=== PATIENT | female | born 1990 | race Caucasian/White ===

== ENCOUNTER 2017-07-25 15:38 | Emergency (ER) | payer BC, MEDICAID ==
[2017-07-25] MEDS ORDERED: DIPHENHYDRAMINE HCL IV 50 MG/ML VIAL IVP ONE (16:09)
[2017-07-25] MEDS ORDERED: LORAZEPAM 2 MG/ML VIAL IV ONE (16:09)
[2017-07-25] MEDS ORDERED: 0.9 % SODIUM CHLORIDE 1,000 ML BAG IV ONE (16:09)
[2017-07-25] MEDS ORDERED: METOCLOPRAMIDE HCL 10 MG/2 ML VIAL IVP ONE (16:09)
[2017-07-25] MEDS ORDERED: KETOROLAC 30 MG/ML VIAL IVP ONE (16:09)
--- NOTE | 2017-07-25 16:09 | Emergency Department Record ---
History of Present Illness - General Chief Complaint: Headache Migraine Stated Complaint: DELGADO Time Seen by Provider: 07/25/17 15:40 Source: Patient Mode of Arrival: Ambulatory Limitations: No limitations - History of Present Illness Initial Comments: 27 yo female presents with a headache. She has been having headaches since May. She has recently been under the care of a neurologist. She had an MRI of her brain today in [place]. She reports that the headaches started and would come and go. She states she has nausea, light and noise sensitivity, fingers tingle, and she gets tingling around her mouth. Over the months the headaches became more frequent and now are present daily. She saw the neurologist and had labs and scheduled for MRI that was today. No confusion. She does have anxiety about having a brain tumor or aneurysm. No trauma. No other recent changes in her health. The headaches are typical on the right side. MD Complaint: Headache Onset/Timin -: Hour(s) Onset Description: Gradual (gradually worsening over 3 months) Location: Right Severity: Severe Severity scale (1-10): 10 Quality: Sharp Consistency: Constant Improves With: Nothing Worsens With: Light, Noise Associated Symptoms: Photophobia, Sensitivity to sound, Tingling/numbness, Vomiting Treatment Prior to Arrival Comment:: excedrin, tramadol, motrin, tylenol , dramamine - Related Data Home Medications Medication Instructions Recorded Confirmed Last Taken Clonazepam [Klonopin] 1 mg PO Q12H 07/25/17 07/25/17 Unknown Ethinyl Estradiol/Drospirenone 1 tab PO DAILY 07/25/17 07/25/17 Unknown [Loryna 3 mg-0.02 mg Tablet] Sertraline HCl [Zoloft] 100 mg PO DAILY 07/25/17 07/25/17 Unknown Tramadol HCl [Ultram] 50 mg PO Q8H PRN 07/25/17 07/25/17 07/25/17 Previous Rx's Medication Instructions Recorded Methylprednisolone [Medrol Dose 4 mg PO DAILY #1 tab.ds.pk 07/25/17 Pack] Allergies Allergy/AdvReac Type Severity Reaction Status Date / Time Sulfa (Sulfonamide Allergy HIVES Verified 03/16/14 23:04 Antibiotics) Travel Screening - Travel/Exposure Within Last 30 Days Have you traveled within the last 30 days?: No - Travel Symptoms Symptom Screening: None Review of Systems Constitutional: Denies: Chills, Fever, Malaise, Night sweats, Weakness Eyes: Reports: Photophobia. Denies: Eye discharge, Eye pain ENT: Denies: Congestion, Dental pain, Ear pain, Throat pain Respiratory: Denies: Cough, Dyspnea, Hemoptysis, Stridor, Wheezes Cardiovascular: Denies: Chest pain, Palpitations, Syncope Endocrine: Denies: Fatigue Gastrointestinal: Reports: Nausea. Denies: Abdominal pain, Diarrhea, Vomiting Genitourinary: Denies: Dyspareunia, Dysuria, Urgency Musculoskeletal: Denies: Arthralgia, Back pain, Joint swelling, Myalgia, Neck pain Skin: Denies: Bruising, Change in color, Rash Neurological: Reports: Headache, Tingling (fingers tingle at times). Denies: Abnormal gait, Confusion, Numbness, Paresthesias, Tremors, Vertigo, Weakness Psychiatric: Reports: Anxiety Hematological/Lymphatic: Denies: Anemia, Blood Clots, Easy bruising, Swollen glands Past Medical History - SOCIAL HISTORY Smoking Status: Former smoker - RESPIRATORY Hx Respiratory Disorders: No - CARDIOVASCULAR Hx Cardio Disorders: No - NEURO Hx Neuro Disorders: No - GI Hx GI Disorders: Yes Hx Irritable Bowel: Yes - Hx Genitourinary Disorders: Yes Hx UTI: Yes - ENDOCRINE Hx Endocrine Disorders: No - MUSCULOSKELETAL Hx Musculoskeletal Disorders: No - PSYCH Hx Psych Problems: Yes Hx Anxiety: Yes - HEMATOLOGY/ONCOLOGY Hx Hematology/Oncology Disorders: No Family Medical History Any Significant Family History?: Yes Hx Heart Disease: Grandparents Physical Exam - General General Appearance: Alert, Oriented x3, Cooperative, No acute distress, Anxious (expressed concern it is a tumor) Limitations: No limitations - Head Head exam: Normal inspection - Eye Eye exam: Normal appearance, PERRL, EOMI. negative: Conjunctival injection, Periorbital swelling - ENT ENT exam: Normal exam, Mucous membranes moist Ear exam: Normal external inspection Nasal Exam: Normal inspection Mouth exam: Normal external inspection - Neck Neck exam: Normal inspection, Full ROM. negative: Lymphadenopathy, Meningismus - Respiratory Respiratory exam: Normal lung sounds bilaterally. negative: Respiratory distress - Cardiovascular Cardiovascular Exam: Regular rate, Normal rhythm, Normal heart sounds Peripheral Pulses: 2+: Radial (R), Radial (L) - Rectal Rectal exam: Deferred - exam: Deferred - Extremities Extremities exam: Normal inspection, Full ROM. negative: Pedal edema, Tenderness - Back Back exam: Reports: Normal inspection. Denies: CVA tenderness (R), CVA tenderness (L) - Neurological Neurological exam: Alert, Altered, CN II-XII intact, Normal gait, Oriented X3, Reflexes normal, Other (No PND, normal FTN,clear speech, symmetric face, clear thoughts). negative: Motor sensory deficit - Psychiatric Psychiatric exam: Anxious. negative: Agitated - Skin Skin exam: Dry, Intact, Normal color, Warm. negative: Cyanosis, Diaphoretic, Erythema, Mottled Course Vital Signs 07/25/17 15:46 Temperature 98.9 F Pulse Rate [ 111 H Pulse Ox Probe] Respiratory 20 Rate Blood Pressure 131/101 [Left Arm] Pulse Ox 92 L - Reevaluation(s) Reevaluation #1: MRI today: No acute abnormality, minimal chronic small ischemic change of frontal and occipital WM, essentially within normal limits, No enhancing Brain lesions, mild chronic sinusitis. The patient was informed of the results. 07/25/17 16:19 Reevaluation #2: The patient is much improved at this time Labs from 07/15/17 ESR 45, and CRP 2.3 Given the elevation I will have her call her neurologist on Friday She will be placed on a Medrol dose pack given labs She was given instructions for close follow up as well as reasons to seek medical care immediately. 07/25/17 18:17 Disposition Disposition: Discharge Clinical Impression: Headache Qualifiers: Headache type: unspecified Headache chronicity pattern: acute headache Intractability: not intractable Qualified Code(s): R51 - Headache Disposition: Home, Self-Care Condition: (1) Good Instructions: Acute Headache (ED) Additional Instructions: Call your neurologist to follow up the MRI and the ED visit Return or seek medical care if return of symptoms or worse Rest and stay well hydrated Prescriptions: Methylprednisolone [Medrol Dose Pack] 4 mg PO DAILY #1 tab.ds.pk Forms: Patient Portal Access Time of Disposition: 18:18 Quality - Quality Measures Quality Measures: N/A - Blood Pressure Screening Does Patient Have Any of the Following: No Blood Pressure Classification: Pre-Hypertensive BP Reading Systolic Measurement: 125 Diastolic Measurement: 70 Screening for High Blood Pressure: < Pre-Hypertensive BP, F/U Documented > [ G8730] Pre-Hypertensive Follow-up Interventions: Referral to alternative/primary care provider.
[2017-07-25] MEDS ORDERED: PROMETHAZINE HCL 25 MG/ML VIAL IVP ONE (17:07)
[2017-07-25] MEDS ORDERED: DEXAMETHASONE SOD PHOSPHATE 10MG/ML VIAL IVP ONE (17:07)
[2017-07-25] MEDS ORDERED: MORPHINE SULFATE 5 MG/ML PFS IVP ONE ×2 (17:07→17:54)
== END 2017-07-25 18:42 | disposition home or self-care (01) ==
LOC: ER 15:38
DX: R51 Headache (principal); R11.2 Nausea with vomiting, unspecified; R20.2 Paresthesia of skin
CPT/HCPCS: 99284 ×2; 96376; 96374; 96375; 96361; J1885; J2060; J2270; J1100; J1200; J2550; J2765; J7030

== ENCOUNTER 2018-04-14 21:53 | Emergency (ER) | payer MEDICAID ==
[2018-04-14] MEDS ORDERED: DIPHENHYDRAMINE HCL 50 MG/ML VIAL IVP ONE ×2 (22:12→22:15)
[2018-04-14] MEDS ORDERED: PROMETHAZINE HCL 25 MG in 0.9 % SODIUM CHLORIDE 100ML 100 ML IVPB ONE (22:12)
[2018-04-14] MEDS ORDERED: KETOROLAC 30 MG/ML VIAL IVP ONE (22:12)
[2018-04-14] MEDS ORDERED: 0.9 % SODIUM CHLORIDE 1000ML 1,000 ML IV SCH (22:15)
--- NOTE | 2018-04-14 22:17 | Emergency Department Record ---
History of Present Illness - General Chief Complaint: Headache Migraine Stated Complaint: MIGRAINE Time Seen by Provider: 04/14/18 22:12 Source: Patient Mode of Arrival: Ambulatory Limitations: No limitations - History of Present Illness Initial Comments: 28 yo female presents to ED for evaluation of headache symptoms that began earlier today. Patient reports "sharp shooting" pain behind the right eye. Patient does report a history of migraine headaches, however today symptoms are more intense. Patient denies neck stiffness symptoms, denies the use of anticoagulation medications. Patient reports taking Topamax and Ultram without improvement in her symptoms. MD Complaint: Headache Onset/Timin -: Days(s) Onset Description: Gradual Location: Diffuse Severity: Severe Quality: Throbbing Consistency: Constant Improves With: Nothing Worsens With: None Associated Symptoms: Nausea Treatments Prior to Arrival: Migraine medication - Related Data Home Medications Medication Instructions Recorded Confirmed Last Taken Topiramate 25Mg Tablet [Topiramate] 50 mg PO DAILY 04/14/18 04/14/18 Unknown Allergies Allergy/AdvReac Type Severity Reaction Status Date / Time Sulfa (Sulfonamide Allergy HIVES Verified 03/16/14 23:04 Antibiotics) Review of Systems Constitutional: Denies: Chills, Fever, Malaise, Night sweats Eyes: Denies: Eye discharge, Eye pain ENT: Denies: Congestion, Ear pain, Epistaxis Respiratory: Denies: Cough, Dyspnea Cardiovascular: Denies: Chest pain, Dyspnea on exertion Endocrine: Denies: Fatigue, Heat or cold intolerance Gastrointestinal: Denies: Abdominal pain, Nausea, Vomiting Genitourinary: Denies: Incontinence, Retention Musculoskeletal: Denies: Arthralgia, Back pain, Gout, Joint swelling Skin: Denies: Bruising, Change in color Neurological: Reports: Headache. Denies: Abnormal gait, Confusion, Seizure Psychiatric: Denies: Anxiety Hematological/Lymphatic: Denies: Anemia, Blood Clots Past Medical History - SOCIAL HISTORY Smoking Status: Former smoker - RESPIRATORY Hx Respiratory Disorders: No - CARDIOVASCULAR Hx Cardio Disorders: No - NEURO Hx Neuro Disorders: No - GI Hx GI Disorders: Yes Hx Irritable Bowel: Yes - Hx Genitourinary Disorders: Yes Hx UTI: Yes - ENDOCRINE Hx Endocrine Disorders: No - MUSCULOSKELETAL Hx Musculoskeletal Disorders: No - PSYCH Hx Psych Problems: Yes Hx Anxiety: Yes - HEMATOLOGY/ONCOLOGY Hx Hematology/Oncology Disorders: No Family Medical History Hx Heart Disease: Grandparents Physical Exam - General General Appearance: Alert, Oriented x3, Cooperative, Moderate distress Limitations: No limitations - Head Head exam: Atraumatic, Normocephalic, Normal inspection Head exam detail: negative: Abrasion, Contusion, Tol[place]'s sign, General tenderness, Hematoma, Laceration - Eye Eye exam: Normal appearance. negative: Conjunctival injection, Periorbital swelling, Periorbital tenderness, Scleral icterus - ENT Ear exam: negative: Auricular hematoma, Auricular trauma Nasal Exam: negative: Active bleeding, Discharge, Dried blood, Foreign body Mouth exam: negative: Drooling, Laceration, Muffled voice, Tongue elevation - Neck Neck exam: Normal inspection. negative: Meningismus, Tenderness - Respiratory Respiratory exam: Normal lung sounds bilaterally. negative: Rales, Respiratory distress, Rhonchi, Stridor - Cardiovascular Cardiovascular Exam: Regular rate, Normal rhythm, Normal heart sounds - GI/Abdominal GI/Abdominal exam: Soft. negative: Rebound, Rigid, Tenderness - Rectal Rectal exam: Deferred - exam: Deferred - Extremities Extremities exam: Normal inspection. negative: Calf tenderness, Pedal edema, Tenderness - Back Back exam: Denies: CVA tenderness (R), CVA tenderness (L) - Neurological Neurological exam: Alert, Normal gait, Oriented X3 - Psychiatric Psychiatric exam: Normal affect, Normal mood - Skin Skin exam: Normal color. negative: Abrasion Type of lesion: negative: abrasion Course - Reevaluation(s) Reevaluation #1: 04/14/18 23:44 Patient reassessed, reports that her pain symptoms are not significantly improved. Patient's recheck temperature is 98.5, no meningeal signs on re-examination as well. Will trial Valium 5 mg IV if morphine fails to improve symptoms in 10 minutes time. I did discuss indications for LP, patient continues to decline at this time. Reevaluation #2: 04/15/18 00:47 Patient was reassessed, reports mild improvement in her symptoms. I discussed initiating further work-up for the source of the patient's headache symptoms including CT imaging, basic laboratory studies, and LP. I discussed the reason to perform the evaluation to exclude SAH or possible infection (meningitis) despite the lack of meningeal signs on examination. Discussed the risks (delay in diagnosis, permanent impairment, or as well as bleeding, infection, post-LP headache) and benefits (diagnosis and treatment of SAH or meningitis) of further evaluation, patient declined further evaluation at this time and reports that she will call her neurologist in the morning. Patient is alert, oriented, and answers all questions appropriately on my examination. Patient appears to have the capacity to make rational decisions based on my examination. Patient's mother (an ED nurse) was present for all discussions as well and agrees with the patient's decision to go home and rest at this time and defer further evaluation in the ED at this time. Disposition Disposition: Discharge Clinical Impression: Acute headache Qualifiers: Headache type: unspecified Intractability: not intractable Qualified Code(s): R51 - Headache Disposition: Home, Self-Care Condition: (2) Stable Instructions: Acute Headache (ED) Additional Instructions: Return to ED if your symptoms worsen or if you have any concerns. Follow-up with your family doctor in 1-3 days as directed. Forms: Patient Portal Access Time of Disposition: 00:46 Quality - Quality Measures Quality Measures: N/A - Blood Pressure Screening Does Patient Have Any of the Following: No Blood Pressure Classification: Hypertensive Reading Systolic Measurement: 137 Diastolic Measurement: 98 Screening for High Blood Pressure: < First Hypertensive BP, F/U Documented > [ G8950] First Hypertensive Follow-up Interventions: Referral to alternative/primary care provider.
[2018-04-14] MEDS ORDERED: MORPHINE SULFATE 4MG/ML PREFILLED SYRINGE IVP ONE (23:11)
[2018-04-14] MEDS ORDERED: DIAZEPAM 5MG/ML **10ML VIAL IVP ONE (23:59)
== END 2018-04-15 00:57 | disposition home or self-care (01) ==
LOC: ER 21:53
DX: R51 Headache (principal); R11.0 Nausea; Z87.891 Personal history of nicotine dependence
CPT/HCPCS: 96365; 96375; 99284; J1200; J1885; J2274; J2550; J3360; J7030

== ENCOUNTER 2018-04-20 13:13 | Emergency (ER) | payer MEDICAID ==
[2018-04-20] MEDS ORDERED: DEXAMETHASONE SOD PHOSPHATE 10MG/ML VIAL IVP ONE (13:24)
[2018-04-20] MEDS ORDERED: KETOROLAC 30 MG/ML VIAL IVP ONE (13:24)
[2018-04-20] MEDS ORDERED: PROMETHAZINE HCL 12.5 MG in 0.9 % SODIUM CHLORIDE 100ML 100 ML IVPB ONE (13:24)
--- NOTE | 2018-04-20 13:25 | Emergency Department Record ---
History of Present Illness - General Chief Complaint: Headache Migraine Stated Complaint: MIGRAINE Time Seen by Provider: 04/20/18 13:17 Source: Patient, Family Mode of Arrival: Ambulatory Limitations: No limitations - History of Present Illness Initial Comments: 28 yo female presents with a migraine headache. The headache has been coming and going since last Friday. She has a history of migraines. Today's pain is on the right side. It is sharp. She has some nausea and vomiting. No vision changes but light sensitive. The migraine is typical of her migraines. She does see a neurologist. In the fall she had similar migraines that were intense and prolonged. She had an MRI in July 2017. She did have elevated ESR of 49 and CRP 2.3 then. She thinks the labs were rechecked and returned to normal. She states no other specific diagnosis was made when she followed up with her neurologist. No vision changes. No weakness, double vision, ataxia, confusion, speech or swallowing changes. EMR form July 2017 reviewed. Symptoms and location similarly documented at that time. She had an MRI on 07/25 that was unremarkable for acute process. Her labs from Dr Whitten her neurologist 07/15/17 demonstrated an ESR of 49 and a CRP of 2.3. She was placed on Medrol dose pack and improved at that time. Complaint: "Migraine" -: Days(s) (6) Onset Description: Gradual Location: Facial, Right, Temporal Severity: Moderate Quality: Sharp Consistency: Intermittent Improves With: Nothing Worsens With: Light Context: Other Associated Symptoms: Nausea, Vomiting Treatments Prior to Arrival: Other - Related Data Allergies Allergy/AdvReac Type Severity Reaction Status Date / Time Sulfa (Sulfonamide Allergy HIVES Verified 04/20/18 13:25 Antibiotics) Past Medical History - SOCIAL HISTORY Smoking Status: Former smoker - RESPIRATORY Hx Respiratory Disorders: No - CARDIOVASCULAR Hx Cardio Disorders: No - NEURO Hx Neuro Disorders: No - GI Hx GI Disorders: Yes Hx Irritable Bowel: Yes - Hx Genitourinary Disorders: Yes Hx UTI: Yes - ENDOCRINE Hx Endocrine Disorders: No - MUSCULOSKELETAL Hx Musculoskeletal Disorders: No - PSYCH Hx Psych Problems: Yes Hx Anxiety: Yes - HEMATOLOGY/ONCOLOGY Hx Hematology/Oncology Disorders: No Family Medical History Hx Heart Disease: Grandparents Physical Exam - General General Appearance: Alert, Oriented x3, Cooperative, No acute distress, Anxious - Head Head exam: Atraumatic, Normocephalic, Normal inspection - Eye Eye exam: Normal appearance, PERRL, EOMI. negative: Conjunctival injection, Nystagmus, Periorbital swelling, Periorbital tenderness - ENT ENT exam: Normal exam, Mucous membranes moist, Normal orophraynx Ear exam: Normal external inspection Nasal Exam: Normal inspection Mouth exam: Normal external inspection Teeth exam: Normal inspection Throat exam: Normal inspection - Neck Neck exam: Normal inspection, Full ROM. negative: Meningismus, Tenderness, Thyromegaly - Respiratory Respiratory exam: Normal lung sounds bilaterally. negative: Chest wall tenderness, Prolonged expiratory, Respiratory distress, Rhonchi, Stridor, Wheezes - Cardiovascular Cardiovascular Exam: Regular rate, Normal rhythm, Normal heart sounds - GI/Abdominal GI/Abdominal exam: Soft. negative: Tenderness - Rectal Rectal exam: Deferred - exam: Deferred - Extremities Extremities exam: Normal inspection, Full ROM, Normal capillary refill. negative: Pedal edema, Tenderness - Back Back exam: Reports: Normal inspection, Full ROM. Denies: Muscle spasm, Rash noted, Tenderness - Neurological Neurological exam: Alert, Altered, Normal gait, Oriented X3. negative: Abnormal gait, CN II-XII intact, Motor sensory deficit - Psychiatric Psychiatric exam: Anxious (tearful holding her head) - Skin Skin exam: Dry, Intact, Normal color, Warm. negative: Cyanosis, Diaphoretic, Erythema, Mottled Course - Reevaluation(s) Reevaluation #1: 04/20/18 14:50 RN had difficulty with IV and labs Phlebotomy called for draw PO and IM medications given 04/20/18 15:13 IV established. Medications and fluids given Records from [facility] requested. The patient states she responded very well to Haldol and Benadryl at [facility] ED. The patient's mother is in the ED as well. She concurs the DELGADO is typical of the prior migraines. She was not given a reason the prior ESR and CRP were elevated as well. The patient did do well in the past with the addition of a Medrol Dose pack. 04/20/18 15:31 The CBC was reviewed. No acute changes The CRP is elevated at 3.3 04/20/18 15:43 ESR is 39. 04/20/18 15:44 Given this is the third ED visit in 6 days HCT ordered. I discussed further work up with transfer and admission given her intractable pain A message was left with the neurology office she had seen in the past at [facility] Dr Whitten to discuss the case. No call back. 04/20/18 15:53 04/20/18 16:08 The HCT is negative per radiologist read. No acute process. 04/20/18 16:[address] Berrios of [facility] Neurology. We discussed the prolonged headache with recurrent elevation of ESR and CRP. She agrees with transfer to [facility] for further work up. 04/20/18 16:33 Dr Garcia accepts the patient to [facility] EKG performed prior to Haldol. QT is 315 wtih QTC of 432 not prolonged. sinus tach 113, axis L, No ST changes. 04/20/18 17:15 The patient now discloses she is on Methadone. She was scared to tell me because she thought that would influence my care. She states over three years ago she had been on oral narcotics but was able to switch to Methadone with good results. She was worried about missing her clinic appointment and being stigmatized for being on Methadone. [facility] One call recalled to update. The patient agrees with transfer. 04/20/18 17:23 Her dose is 120mg daily. 04/20/18 17:25 Dr Garcia of [facility] was updated on the new information 04/20/18 18:55 No call back from the Dr Whitten's office Medical Decision Making - Lab Data Result diagrams: 04/20/18 13:21 04/20/18 13:21 Disposition Disposition: Transfer Clinical Impression: Migraine Disposition: Acute Care Hospital Transfer Transfer To: [facility] Reason For Transfer: Intractible Headache Accepting Physician: Radha Time Discussed w/Accepting Physician: 17:18 Condition: (1) Good Forms: Patient Portal Access Time of Disposition: 16:28 Quality - Quality Measures Quality Measures: Headache (All Ages) - Headache: Neuroimaging Quality Measure: Measure #419: Overuse of Neuroimaging ICD10 Codes Entered: Yes Neurological Exam: Patient had a normal neurological exam. [G9535] Headache: Use of Neuroimaging: CTA, CT, MRA or MRI Ordered w/Medical Reason [ G9536] Medical Reason for Exam: Change in Type of Headache - Blood Pressure Screening Does Patient Have Any of the Following: No Blood Pressure Classification: Hypertensive Reading Systolic Measurement: 133 Diastolic Measurement: 92 Screening for High Blood Pressure: < Pre-Hypertensive BP, F/U Documented > [ G8950] Pre-Hypertensive Follow-up Interventions: Referral to alternative/primary care provider.
[2018-04-20] MEDS: DEXAMETHASONE SOD PHOSPHATE 10MG/ML VIAL PO ONE (14:06)
[2018-04-20] MEDS: ONDANSETRON 4 MG ODT TABLET SL ONE (14:06)
[2018-04-20] MEDS: KETOROLAC 30 MG/ML VIAL IM ONE (14:08)
[2018-04-20] MEDS: MORPHINE SULFATE 4MG/ML PREFILLED SYRINGE IM ONE (14:08)
[2018-04-20 14:56] LABS: BASO % 0.3 % (0-6); GRAN % 64.2 % (47-80); HEMOGLOBIN 13.3 gm/dl (11.6-16.0); MEAN CELL VOLUME 94.5 fl (81-97); MEAN CORPUSCULAR HEMOGLOBIN 30.6 pg (27-33); MEAN CORPUSCULAR HGB CONC 32.4 g/dl (32-36); MEAN PLATELET VOLUME 9.5 fl (7.4-10.4); MONO % 6.5 % (0-9); PLATELET COUNT 263 K/uL (130-400); RED BLOOD COUNT 4.34 M/uL (3.80-5.40); RED CELL DISTRIBUTION WIDTH 14.8 % (11.5-14.5); WHITE BLOOD COUNT W/O DIFF 7.7 K/uL (4.2-12.2)
[2018-04-20 15:07] LABS: BLOOD UREA NITROGEN 10 mg/dL (6-20); CREATININE 0.7 mg/dL (0.5-0.9); EST GLOMERULAR FILTRATION RATE > 60 mL/min
[2018-04-20 15:10] LABS: GLUCOSE,RANDOM 84 mg/dL (74-109)
[2018-04-20] MEDS: DIPHENHYDRAMINE HCL 50 MG/ML VIAL IVP ONE (15:16)
[2018-04-20] MEDS: PROMETHAZINE HCL 12.5 MG in 0.9 % SODIUM CHLORIDE 100ML 100 ML IVPB ONE (15:17)
[2018-04-20] MEDS: 0.9 % SODIUM CHLORIDE 1,000 ML BAG IV ONE (15:17)
[2018-04-20 15:40] LABS: ERYTHROCYTE SEDIMENTATION RATE 39 mm/hr (0-20)
[2018-04-20] MEDS: SODIUM CHLORIDE 0.9% IVPB ONE (16:04)
[2018-04-20] MEDS: HALOPERIDOL LACTATE IVPB ONE (16:04)
[2018-04-20] MEDS: LORAZEPAM 2 MG/ML VIAL IV ONE (16:36)
--- NOTE | 2018-04-22 09:28 | CT SCAN REPORT ---
EXAM: CT OF THE BRAIN WITHOUT CONTRAST HISTORY: RIGHT SIDED HEADACHE. TECHNIQUE: Sequential axial images were obtained from the foramen magnum to the vertex without contrast administration. FINDINGS: The brain volume is normal. No large territorial infarct, hemorrhage , mass effect, or midline shift. No extraaxial fluid collection. The orbits, paranasal sinuses, and mastoid air cells are normal. IMPRESSION: NO ACUTE INTRACRANIAL ABNORMALITY IS APPRECIATED. JOB NUMBER: [id number] MTDD
== END 2018-04-20 18:32 | disposition short-term general hospital (02) ==
LOC: ER 13:13
DX: G43.909 Migraine, unspecified, not intractable, without status migrainosus (principal); R11.2 Nausea with vomiting, unspecified; H53.149 Visual discomfort, unspecified; R79.82 Elevated C-reactive protein (CRP); R70.0 Elevated erythrocyte sedimentation rate; F11.90 Opioid use, unspecified, uncomplicated; Z87.891 Personal history of nicotine dependence
CPT/HCPCS: 70450; 80048; 84703; 85025; 85651; 86140; 93005; 93010; 96361; 96365; 96366; 96372; 96375; 99285; J1200; J1885; J2274; J2550; J7030

== ENCOUNTER 2018-04-29 19:06 | Emergency (ER) | payer MEDICAID ==
--- NOTE | 2018-04-29 19:20 | Emergency Department Record ---
History of Present Illness - General Chief Complaint: Headache Migraine Stated Complaint: NERVE PAIN IN HEAD Time Seen by Provider: 04/29/18 19:08 Source: Patient Mode of Arrival: Ambulatory Limitations: No limitations - History of Present Illness Initial Comments: 28 yo female presents with recurrent right sided sharp headache, facial pain. This has been a recurrent issue since last year. She was seen at [facility] about one week ago and was transferred to [facility] for work up due to a recurrent elevated ESR and CRP. The headache is similar to previous. It is sharp, right sided. She underwent extensive testing and imaging at [facility]. She was treated with a nerve block as well in the orbital area that was effective. She is trying to schedule her follow up occipital block for a presumed diagnosis of occipital neuralgia. MD Complaint: "Migraine" -: Week(s) Onset Description: Gradual Location: Facial Severity: Severe Quality: Aching, Sharp Consistency: Intermittent Improves With: Nothing Worsens With: None Context: Other Associated Symptoms: Nausea Other Symptoms: Other Treatments Prior to Arrival: Migraine medication - Symptoms of Stroke Baseline State: Baseline State - Related Data Allergies Allergy/AdvReac Type Severity Reaction Status Date / Time Sulfa (Sulfonamide Allergy HIVES Verified 04/29/18 19:20 Antibiotics) Review of Systems Constitutional: Denies: Chills, Fever, Malaise, Weakness Eyes: Reports: Eye pain. Denies: Eye discharge, Photophobia, Vision change ENT: Denies: Congestion Respiratory: Denies: Cough, Dyspnea Cardiovascular: Denies: Chest pain, Syncope Endocrine: Denies: Fatigue Gastrointestinal: Reports: Nausea. Denies: Abdominal pain, Diarrhea Genitourinary: Denies: Dysuria, Urgency Skin: Denies: Bruising, Change in color, Rash Neurological: Reports: Headache. Denies: Abnormal gait, Confusion, Numbness, Paresthesias, Tingling, Tremors, Weakness Psychiatric: Reports: Anxiety, Depression Hematological/Lymphatic: Denies: Easy bleeding, Easy bruising, Swollen glands Past Medical History - SOCIAL HISTORY Smoking Status: Former smoker - RESPIRATORY Hx Respiratory Disorders: No - CARDIOVASCULAR Hx Cardio Disorders: No - NEURO Hx Neuro Disorders: No - GI Hx GI Disorders: Yes Hx Irritable Bowel: Yes - Hx Genitourinary Disorders: Yes Hx UTI: Yes - ENDOCRINE Hx Endocrine Disorders: No - MUSCULOSKELETAL Hx Musculoskeletal Disorders: No - PSYCH Hx Psych Problems: Yes Hx Anxiety: Yes - HEMATOLOGY/ONCOLOGY Hx Hematology/Oncology Disorders: No Family Medical History Hx Heart Disease: Grandparents Physical Exam - General General Appearance: Alert, Oriented x3, Cooperative, No acute distress Limitations: No limitations - Head Head exam: Atraumatic, Normocephalic, Normal inspection - Eye Eye exam: Normal appearance, PERRL, EOMI. negative: Conjunctival injection, Scleral icterus - ENT ENT exam: Normal exam, Mucous membranes moist Ear exam: Normal external inspection Nasal Exam: Normal inspection Mouth exam: Normal external inspection Teeth exam: Normal inspection Throat exam: Normal inspection - Neck Neck exam: Normal inspection, Full ROM. negative: Tenderness - Respiratory Respiratory exam: Normal lung sounds bilaterally. negative: Respiratory distress - Cardiovascular Cardiovascular Exam: Regular rate, Normal rhythm, Normal heart sounds - GI/Abdominal GI/Abdominal exam: Soft. negative: Tenderness - Rectal Rectal exam: Deferred - exam: Deferred - Extremities Extremities exam: Normal inspection, Full ROM, Normal capillary refill. negative: Tenderness - Back Back exam: Reports: Normal inspection, Full ROM. Denies: Muscle spasm, Rash noted, Tenderness - Neurological Neurological exam: Alert, CN II-XII intact, Normal gait, Oriented X3. negative : Abnormal gait, Altered, Motor sensory deficit - Psychiatric Psychiatric exam: Anxious. negative: Agitated, Depressed - Skin Skin exam: Dry, Intact, Normal color, Warm. negative: Cyanosis, Diaphoretic, Erythema, Mottled Course - Reevaluation(s) Reevaluation #1: 04/29/18 19:19 [facility] record reviewed from [facility]. CT and MRI's reviewed DC summary reviewed. 04/29/18 21:09 The patient reports she is starting to get relief She will be calling tomorrow for her appointment for occipital nerve block. 04/29/18 21:12 HR improved 98 during the recheck 04/29/18 21:47 The pain is well controlled at this time. Disposition Disposition: Discharge Clinical Impression: Occipital neuralgia of right side Disposition: Home, Self-Care Condition: (1) Good Instructions: Trigeminal Neuralgia (ED), Acute Headache (ED) Additional Instructions: Follow up with your doctors this week Return if any new symptoms or concerns Rest and stay well hydrated Forms: Patient Portal Access Time of Disposition: 21:12 Quality - Quality Measures Quality Measures: N/A, Headache (All Ages) - Headache: Neuroimaging Quality Measure: Measure #419: Overuse of Neuroimaging ICD10 Codes Entered: Yes Neurological Exam: Patient had a normal neurological exam. [G9535] Headache: Use of Neuroimaging: < CTA, CT, MRA or MRI was NOT ordered > [G9534] - Blood Pressure Screening Does Patient Have Any of the Following: No Blood Pressure Classification: Normal BP Reading Systolic Measurement: 114 Diastolic Measurement: 75 Screening for High Blood Pressure: < Normal BP, F/U Not Required > [G8783]
[2018-04-29] MEDS ORDERED: 0.9 % SODIUM CHLORIDE 1,000 ML BAG IV ONE (19:35)
[2018-04-29] MEDS ORDERED: METOCLOPRAMIDE HCL 10 MG/2 ML VIAL IVP ONE (19:35)
[2018-04-29] MEDS ORDERED: HALOPERIDOL LACTATE 5 MG/ML VIAL IM ONE (19:35)
[2018-04-29] MEDS ORDERED: KETOROLAC 30 MG/ML VIAL IVP ONE (19:36)
[2018-04-29] MEDS ORDERED: DIPHENHYDRAMINE HCL 50 MG/ML VIAL IVP ONE (19:36)
[2018-04-29] MEDS ORDERED: DIAZEPAM 5 MG TABLET PO ONE (21:06)
[2018-04-29] MEDS ORDERED: LORAZEPAM 2 MG/ML VIAL IV ONE (21:09)
== END 2018-04-29 21:50 | disposition home or self-care (01) ==
LOC: ER 19:06
DX: M54.81 Occipital neuralgia (principal); R51 Headache; R11.0 Nausea; F17.210 Nicotine dependence, cigarettes, uncomplicated
CPT/HCPCS: 99284 ×2; 96374; 96372; 96375; J1885; J2060; J1200; J1630; J2765; J7030

== ENCOUNTER 2018-05-09 19:18 | Emergency (ER) | payer MEDICAID ==
[2018-05-09] MEDS ORDERED: DIPHENHYDRAMINE HCL 50 MG/ML VIAL IVP ONE (19:35)
[2018-05-09] MEDS ORDERED: METOCLOPRAMIDE HCL 10 MG/2 ML VIAL IVP ONE (19:35)
[2018-05-09] MEDS ORDERED: DIAZEPAM 5MG/ML **10ML VIAL IVP ONE (19:35)
[2018-05-09] MEDS ORDERED: HALOPERIDOL LACTATE IVPB ONE (19:35)
[2018-05-09] MEDS ORDERED: SODIUM CHLORIDE 0.9% IVPB ONE (19:35)
[2018-05-09] MEDS ORDERED: KETOROLAC 30 MG/ML VIAL IVP ONE (19:35)
--- NOTE | 2018-05-09 19:41 | Emergency Department Record ---
History of Present Illness - General Chief Complaint: Headache Migraine Stated Complaint: MIGRAINE Time Seen by Provider: 05/09/18 19:20 Source: Patient Mode of Arrival: Ambulatory Limitations: No limitations - History of Present Illness Initial Comments: 28 yo female returns to ED for evaluation of recurrent right sided headache symptoms. Patient has been seen in ED x 4 this month alone, was transferred 6.11 to [facility] for further neurologic evaluation and consultation. Repeat CT brain was negative for an acute process, and MRI of the brain performed while an inpatient was negative for an acute process per patient and her mother. Patient reports similar symptoms previously with other headache episodes, and she is awaiting pain specialist consultation for possible nerve block. Patient denies fever or neck stiffness symptoms. Patient does have a history of metahdone use, but denies any changes in her medication regimen. Patient was also started on Neurontin 3 days ago. Complaint: Headache Onset/Timin -: Hour(s) Onset Description: Sudden, Awoke with symptoms Severity: Severe Severity scale (1-10): 10 Quality: Similar to previous headaches Consistency: Constant, Getting worse Improves With: Nothing Worsens With: Movement of head/neck Associated Symptoms: Photophobia, Sensitivity to sound Other Symptoms: Other Treatments Prior to Arrival: Acetaminophen, Antiemetic, Ibuprofen, Migraine medication Treatment Prior to Arrival Comment:: home meds - Related Data Allergies Allergy/AdvReac Type Severity Reaction Status Date / Time Sulfa (Sulfonamide Allergy HIVES Verified 04/29/18 19:20 Antibiotics) Travel Screening - Travel/Exposure Within Last 30 Days Have you traveled within the last 30 days?: No - Travel Symptoms Symptom Screening: Headache Review of Systems Constitutional: Denies: Chills, Fever, Malaise, Night sweats Eyes: Reports: Photophobia. Denies: Eye discharge, Eye pain ENT: Denies: Congestion, Ear pain, Epistaxis Respiratory: Denies: Cough, Dyspnea Cardiovascular: Denies: Chest pain, Dyspnea on exertion Endocrine: Denies: Fatigue, Heat or cold intolerance Gastrointestinal: Denies: Abdominal pain, Nausea, Vomiting Genitourinary: Denies: Incontinence, Retention Musculoskeletal: Denies: Arthralgia, Back pain Skin: Denies: Bruising, Change in color Neurological: Reports: Headache. Denies: Abnormal gait, Confusion, Seizure Psychiatric: Denies: Anxiety Hematological/Lymphatic: Denies: Anemia, Blood Clots Past Medical History - SOCIAL HISTORY Smoking Status: Former smoker Alcohol Use: None Drug Use: None - RESPIRATORY Hx Respiratory Disorders: No - CARDIOVASCULAR Hx Cardio Disorders: No - NEURO Hx Neuro Disorders: No Hx Headaches: Yes - GI Hx GI Disorders: Yes Hx Irritable Bowel: Yes - Hx Genitourinary Disorders: Yes Hx UTI: Yes - ENDOCRINE Hx Endocrine Disorders: No - MUSCULOSKELETAL Hx Musculoskeletal Disorders: No - PSYCH Hx Psych Problems: Yes Hx Anxiety: Yes - HEMATOLOGY/ONCOLOGY Hx Hematology/Oncology Disorders: No Family Medical History Any Significant Family History?: Yes Hx Heart Disease: Grandparents Physical Exam - General General Appearance: Alert, Oriented x3, Cooperative, Moderate distress Limitations: No limitations - Head Head exam: Atraumatic, Normocephalic, Normal inspection Head exam detail: negative: Abrasion, Contusion, Toledo's sign, General tenderness, Hematoma, Laceration - Eye Eye exam: Normal appearance, PERRL. negative: Conjunctival injection, Periorbital swelling, Periorbital tenderness, Scleral icterus - ENT Ear exam: negative: Auricular hematoma, Auricular trauma Nasal Exam: negative: Active bleeding, Discharge, Dried blood, Foreign body Mouth exam: negative: Drooling, Laceration, Muffled voice, Tongue elevation - Neck Neck exam: Normal inspection. negative: Meningismus, Tenderness - Respiratory Respiratory exam: Normal lung sounds bilaterally. negative: Rales, Respiratory distress, Rhonchi, Stridor - Cardiovascular Cardiovascular Exam: Normal rhythm, Normal heart sounds, Tachycardia - GI/Abdominal GI/Abdominal exam: Soft. negative: Rebound, Rigid, Tenderness - Rectal Rectal exam: Deferred - exam: Deferred - Extremities Extremities exam: Normal inspection. negative: Calf tenderness, Pedal edema, Tenderness - Back Back exam: Denies: CVA tenderness (R), CVA tenderness (L) - Neurological Neurological exam: Alert, Normal gait, Oriented X3 - Psychiatric Psychiatric exam: Anxious - Skin Skin exam: Normal color. negative: Abrasion Type of lesion: negative: abrasion Course Vital Signs 05/09/18 19:25 Temperature 99.7 F H Pulse Rate [ 138 H Pulse Ox Probe] Respiratory 20 Rate Blood Pressure 128/94 [Left Arm] Pulse Ox 95 - Reevaluation(s) Reevaluation #1: 05/09/18 19:42 Previous ED records as well as CT imaging 04/20 were reviewed. Patient's discharge summary from [facility] 04/23 was reviewed as well. There are no focal neurological deficits on examination, and repeat imaging does not appear indicated as these symptoms are c/w previous presentations. Will administer the following medications that the patient reports have helped previously: Valium Toradol Haldo benadryl Reglan Patient's previous vitals were reviewed from prevuious visits as well, patient appears to present to ED with resting tachycardia on numerous visit. Reevaluation #2: 05/09/18 20:44 IV established, medications are infusing. Will reassess in 30-45 minutes for effect. Reevaluation #3: 05/09/18 21:24 Patient was reassessed and reports that she is feeling significantly better. Patient appears stable for discharge at this time. Disposition Disposition: Discharge Clinical Impression: Acute headache Qualifiers: Headache type: unspecified Intractability: not intractable Qualified Code(s): R51 - Headache Disposition: Home, Self-Care Condition: (2) Stable Instructions: Acute Headache (ED) Additional Instructions: Return to ED if your symptoms worsen or if you have any concerns. Follow-up with your family doctor in 3-5 days as directed. Forms: Patient Portal Access Time of Disposition: 21:24 Quality - Quality Measures Quality Measures: N/A, Headache (All Ages) - Headache: Neuroimaging Quality Measure: Measure #419: Overuse of Neuroimaging ICD10 Codes Entered: Yes Neurological Exam: Patient had a normal neurological exam. [G9535] Headache: Use of Neuroimaging: < CTA, CT, MRA or MRI was NOT ordered > [G9534] - Blood Pressure Screening Does Patient Have Any of the Following: No Blood Pressure Classification: Normal BP Reading Systolic Measurement: 110 Diastolic Measurement: 70 Screening for High Blood Pressure: < Normal BP, F/U Not Required > [G8783]
[2018-05-09] MEDS ORDERED: 0.9 % SODIUM CHLORIDE 1000ML 1,000 ML IV SCH (19:45)
== END 2018-05-09 21:43 | disposition home or self-care (01) ==
LOC: ER 19:18
DX: R51 Headache (principal); H53.149 Visual discomfort, unspecified; Z87.891 Personal history of nicotine dependence
CPT/HCPCS: 96374; 96375; 99284; J1200; J1885; J2765; J3360; J7030

== ENCOUNTER 2018-05-23 13:13 | Emergency (ER) | payer MEDICAID ==
[2018-05-23] MEDS ORDERED: HALOPERIDOL LACTATE IVPB ONE (13:44)
[2018-05-23] MEDS ORDERED: 0.9 % SODIUM CHLORIDE 1,000 ML BAG IV ONE (13:44)
[2018-05-23] MEDS ORDERED: KETOROLAC 30 MG/ML VIAL IVP ONE (13:44)
[2018-05-23] MEDS ORDERED: DIPHENHYDRAMINE HCL 50 MG/ML VIAL IVP ONE (13:44)
[2018-05-23] MEDS ORDERED: METOCLOPRAMIDE HCL 10 MG/2 ML VIAL IVP ONE (13:44)
[2018-05-23] MEDS ORDERED: SODIUM CHLORIDE 0.9% IVPB ONE (13:44)
--- NOTE | 2018-05-23 13:44 | Emergency Department Record ---
History of Present Illness - General Chief Complaint: Headache Migraine Stated Complaint: HEAD PAIN Time Seen by Provider: 05/23/18 13:33 Source: Patient Mode of Arrival: Ambulatory Limitations: No limitations - History of Present Illness Initial Comments: The patient is here due to worsening of her chronic head pain. She has a long hx of chronic pain and does see a Neurologist for it and was hospitalized last month for the same issues. The pain has been coming and going for over a month and now is bad for the last 24 hours. The onset was gradual and is a sharp stabbing pain to the R side of the head and is associated with photophobia and nausea but no vomiting. She has been to the ER multiple times for it in the last 6 weeks and has had a neg Head CT and MRI in the last month. The patient did also receive a cervical nerve block last month while an inpatient at [facility]. Complaint: "Migraine" Onset/Timin -: Days(s) Onset Description: Gradual Location: Diffuse, Right, Temporal Severity: Moderate Severity scale (1-10): 10 Quality: Aching Consistency: Constant Improves With: Nothing Worsens With: None Associated Symptoms: Photophobia Treatments Prior to Arrival: Prescription analgesic Treatment Prior to Arrival Comment:: regimen - Symptoms of Stroke Onset of Symptoms Date: 05/22/18 - Related Data Home Medications Medication Instructions Recorded Confirmed Last Taken Isomethept/Dichlphn/Acetaminop 1 each PO ASDIR 05/23/18 05/23/18 1 Day Ago [[id number]] ~05/22/18 Allergies Allergy/AdvReac Type Severity Reaction Status Date / Time Sulfa (Sulfonamide Allergy HIVES Verified 05/23/18 13:33 Antibiotics) Travel Screening - Travel/Exposure Within Last 30 Days Have you traveled within the last 30 days?: No - Travel/Exposure Within Last Year Have you traveled outside the [place] in the last year?: No - Additonal Travel Details Have you been exposed to anyone with a communicable illness?: No - Travel Symptoms Symptom Screening: None Review of Systems Constitutional: Denies: Chills, Fever Eyes: Denies: Eye discharge ENT: Denies: Congestion Respiratory: Denies: Cough, Dyspnea, Hemoptysis Past Medical History - SOCIAL HISTORY Smoking Status: Former smoker Alcohol Use: None Drug Use: None - RESPIRATORY Hx Respiratory Disorders: No - CARDIOVASCULAR Hx Cardio Disorders: No - NEURO Hx Neuro Disorders: No Hx Headaches: Yes Comment:: temporal neuralgia/ seen neuro 05/11/18/arranged for pain clinic - GI Hx GI Disorders: Yes Hx Irritable Bowel: Yes - Hx Genitourinary Disorders: Yes Hx UTI: Yes - ENDOCRINE Hx Endocrine Disorders: No - MUSCULOSKELETAL Hx Musculoskeletal Disorders: No - PSYCH Hx Psych Problems: Yes Hx Anxiety: Yes - HEMATOLOGY/ONCOLOGY Hx Hematology/Oncology Disorders: No Family Medical History Any Significant Family History?: Yes Hx Heart Disease: Grandparents Physical Exam - General General Appearance: Alert, Oriented x3, Cooperative, Mild distress (due to head pain.) - Head Head exam: Atraumatic, Normocephalic, Normal inspection - Eye Eye exam: Normal appearance, PERRL, EOMI - Neck Neck exam: Normal inspection, Full ROM. negative: Lymphadenopathy, Meningismus (The neck is very supple.), Tenderness - Respiratory Respiratory exam: Normal lung sounds bilaterally. negative: Respiratory distress - Cardiovascular Cardiovascular Exam: Regular rate, Normal rhythm, Normal heart sounds - GI/Abdominal GI/Abdominal exam: Soft, Normal bowel sounds. negative: Tenderness - Extremities Extremities exam: Normal inspection, Full ROM, Normal capillary refill. negative: Tenderness - Back Back exam: Reports: Normal inspection - Neurological Neurological exam: Alert, Normal gait, Oriented X3. negative: Abnormal gait, Altered, Motor sensory deficit Course Vital Signs 05/23/18 13:25 Temperature 98.9 F Pulse Rate 121 H Respiratory 18 Rate Blood Pressure 132/111 Pulse Ox 96 - Reevaluation(s) Reevaluation #1: The patient is doing a lot better at this time. Her pain is much better. 05/23/18 15:25 Reevaluation #2: The patient is doing a lot better at discharge. Her pain is much improved and she appears comfortable and happy. 05/23/18 16:18 Disposition Disposition: Discharge Clinical Impression: Occipital neuralgia of right side Disposition: Home, Self-Care Condition: (2) Stable Instructions: Migraine Headache (ED) Additional Instructions: Continue your regular medicines as directed. Please see your Neurologist next week for recheck. Return to the ER for any worsening symptoms. Forms: Patient Portal Access Time of Disposition: 15:50 Quality - Quality Measures Quality Measures: N/A, Headache (All Ages) - Headache: Neuroimaging Quality Measure: Measure #419: Overuse of Neuroimaging ICD10 Codes Entered: Yes View Detail: Yes Neurological Exam: Patient had a normal neurological exam. [G9535] Headache: Use of Neuroimaging: < CTA, CT, MRA or MRI was NOT ordered > [G9534] - Blood Pressure Screening View Details: Yes Does Patient Have Any of the Following: No Blood Pressure Classification: Hypertensive Reading Systolic Measurement: 132 Diastolic Measurement: 111 Screening for High Blood Pressure: < First Hypertensive BP, F/U Documented > [ G8950] First Hypertensive Follow-up Interventions: Referral to alternative/primary care provider.
== END 2018-05-23 16:06 | disposition home or self-care (01) ==
LOC: ER 13:13
DX: M54.81 Occipital neuralgia (principal); R51 Headache; R11.0 Nausea; H53.149 Visual discomfort, unspecified; M54.2 Cervicalgia; Z87.891 Personal history of nicotine dependence
CPT/HCPCS: 99284 ×2; 96365; 96375; 96361; J1885; J1200; J2765; J7030

== ENCOUNTER 2018-06-16 11:52 | Emergency (ER) | payer MEDICAID ==
[2018-06-16] MEDS ORDERED: KETOROLAC 30 MG/ML VIAL IVP ONE (12:11)
[2018-06-16] MEDS ORDERED: METOCLOPRAMIDE HCL 10 MG/2 ML VIAL IVP ONE (12:11)
[2018-06-16] MEDS ORDERED: DIPHENHYDRAMINE HCL 50 MG/ML VIAL IVP ONE (12:11)
[2018-06-16] MEDS ORDERED: SODIUM CHLORIDE 0.9% 500 ML IV ONE (12:11)
[2018-06-16] MEDS ORDERED: HALOPERIDOL LACTATE IVPB ONE (12:14)
[2018-06-16] MEDS ORDERED: SODIUM CHLORIDE 0.9% IVPB ONE (12:14)
--- NOTE | 2018-06-16 12:15 | Emergency Department Record ---
History of Present Illness - General Chief Complaint: Headache Migraine Stated Complaint: HEADACHE Time Seen by Provider: 06/16/18 11:59 Source: Patient Mode of Arrival: Ambulatory Limitations: No limitations - History of Present Illness Initial Comments: 28 yo female presents with a right sided headache that started at 4am. The patient has had chronic recurrent headaches for the last year. She was diagnosed with occipital neuralgia. She follows with a neurologist in [place]. She did run out of one of her medications and she is working with the office for a refill. No new or different symptoms. MD Complaint: Headache, "Migraine", Other Onset Description: Sudden Location: Right, Temporal Severity: Severe Severity scale (1-10): 10 Quality: Sharp Consistency: Constant Improves With: Nothing Worsens With: None Associated Symptoms: Nausea Treatments Prior to Arrival: None - Related Data Home Medications Medication Instructions Recorded Confirmed Last Taken Gabapentin [Neurontin] 100 mg PO ASDIR 06/16/18 06/16/18 Unknown Allergies Allergy/AdvReac Type Severity Reaction Status Date / Time Sulfa (Sulfonamide Allergy HIVES Verified 06/16/18 12:03 Antibiotics) Travel Screening - Travel/Exposure Within Last 30 Days Have you traveled within the last 30 days?: No Review of Systems Constitutional: Denies: Chills, Fever, Malaise, Weakness Eyes: Denies: Eye discharge ENT: Denies: Congestion, Throat pain Respiratory: Denies: Cough Cardiovascular: Denies: Chest pain, Syncope Endocrine: Denies: Fatigue Gastrointestinal: Reports: Nausea. Denies: Abdominal pain, Diarrhea, Vomiting Genitourinary: Denies: Dysuria, Urgency Musculoskeletal: Denies: Arthralgia, Back pain, Neck pain Skin: Denies: Bruising, Change in color, Rash Neurological: Reports: Headache. Denies: Abnormal gait, Confusion, Numbness, Tingling, Tremors, Vertigo, Weakness Psychiatric: Reports: Anxiety Hematological/Lymphatic: Denies: Easy bleeding, Easy bruising, Swollen glands Past Medical History - SOCIAL HISTORY Smoking Status: Former smoker Alcohol Use: None Drug Use: None - RESPIRATORY Hx Respiratory Disorders: No - CARDIOVASCULAR Hx Cardio Disorders: No - NEURO Hx Neuro Disorders: Yes Hx Headaches: Yes Comment:: temporal neuralgia/ seen neuro 05/11/18/ and pain clinic - GI Hx GI Disorders: Yes Hx Irritable Bowel: Yes - Hx Genitourinary Disorders: Yes Hx UTI: Yes - ENDOCRINE Hx Endocrine Disorders: No - MUSCULOSKELETAL Hx Musculoskeletal Disorders: No - PSYCH Hx Psych Problems: Yes Hx Anxiety: Yes - HEMATOLOGY/ONCOLOGY Hx Hematology/Oncology Disorders: No Family Medical History Any Significant Family History?: Yes Hx Heart Disease: Grandparents Physical Exam - General General Appearance: Alert, Oriented x3, Cooperative, No acute distress Limitations: No limitations - Head Head exam: Atraumatic, Normocephalic, Normal inspection - Eye Eye exam: Normal appearance, PERRL, EOMI. negative: Conjunctival injection, Nystagmus, Scleral icterus - ENT ENT exam: Normal exam, Mucous membranes moist Ear exam: Normal external inspection Nasal Exam: Normal inspection Mouth exam: Normal external inspection Teeth exam: Normal inspection Throat exam: Normal inspection. negative: Tonsillar erythema, Tonsillomegaly, Tonsillar exudate, R peritonsillar mass, L peritonsillar mass - Neck Neck exam: Normal inspection, Full ROM. negative: Tenderness - Respiratory Respiratory exam: Normal lung sounds bilaterally. negative: Respiratory distress - Cardiovascular Cardiovascular Exam: Regular rate, Normal rhythm, Normal heart sounds - GI/Abdominal GI/Abdominal exam: Soft. negative: Tenderness - Rectal Rectal exam: Deferred - exam: Deferred - Extremities Extremities exam: Normal inspection, Full ROM, Normal capillary refill. negative: Tenderness - Back Back exam: Denies: CVA tenderness (R), CVA tenderness (L) - Neurological Neurological exam: Alert, CN II-XII intact, Normal gait, Oriented X3. negative : Abnormal gait, Altered, Motor sensory deficit - Psychiatric Psychiatric exam: Normal affect, Normal mood - Skin Skin exam: Dry, Intact, Normal color, Warm Course Vital Signs 06/16/18 11:58 Temperature 97.9 F Pulse Rate 125 H Respiratory 20 Rate Blood Pressure 116/97 Pulse Ox 93 L - Reevaluation(s) Reevaluation #1: 06/16/18 13:24 The patient was rechecked. Her medications are infusing. She is beginning to feel relief. 06/16/18 13:50 HR improved to 97, pain continues to improve 06/16/18 14:13 Much improved and ready for DC We discussed the need for close follow up Disposition Disposition: Discharge Clinical Impression: Occipital neuralgia of right side Disposition: Home, Self-Care Condition: (1) Good Instructions: Acute Headache (ED) Additional Instructions: Follow up with your neurologist this week Rest and stay well hydrated Return if worse, any new concerns or new symptoms Forms: Patient Portal Access Time of Disposition: 14:13 Quality - Quality Measures Quality Measures: N/A, Headache (All Ages) - Headache: Neuroimaging Quality Measure: Measure #419: Overuse of Neuroimaging ICD10 Codes Entered: Yes Neurological Exam: Patient had a normal neurological exam. [G9535] Headache: Use of Neuroimaging: < CTA, CT, MRA or MRI was NOT ordered > [G9534] - Blood Pressure Screening Does Patient Have Any of the Following: No Blood Pressure Classification: Normal BP Reading Systolic Measurement: 105 Diastolic Measurement: 71 Screening for High Blood Pressure: < Normal BP, F/U Not Required > [G8783]
== END 2018-06-16 14:20 | disposition home or self-care (01) ==
LOC: ER 11:52
DX: M54.81 Occipital neuralgia (principal); R51 Headache; R11.0 Nausea; Z87.891 Personal history of nicotine dependence
CPT/HCPCS: 96365; 96375; 99284; J1200; J1885; J2765

== ENCOUNTER 2018-06-29 11:32 | Emergency (ER) | payer MEDICAID ==
[2018-06-29] MEDS ORDERED: METOCLOPRAMIDE HCL 10 MG/2 ML VIAL IVP ONE (11:59)
[2018-06-29] MEDS ORDERED: 0.9 % SODIUM CHLORIDE 1,000 ML BAG IV ONE (11:59)
[2018-06-29] MEDS ORDERED: SODIUM CHLORIDE 0.9% IVPB ONE (11:59)
[2018-06-29] MEDS ORDERED: DIPHENHYDRAMINE HCL 50 MG/ML VIAL IVP ONE (11:59)
[2018-06-29] MEDS ORDERED: HALOPERIDOL LACTATE IVPB ONE (11:59)
--- NOTE | 2018-06-29 12:58 | Emergency Department Record ---
History of Present Illness - General Chief Complaint: Headache Migraine Stated Complaint: DELGADO Time Seen by Provider: 06/29/18 11:52 Source: Patient Mode of Arrival: Ambulatory Limitations: No limitations - History of Present Illness Initial Comments: pt is having her typical migraine. she vomited 1 time. it is on the r side of her head MD Complaint: "Migraine" Onset/Timin -: Days(s) Onset Description: Gradual Location: Right Severity: Severe Severity scale (1-10): 10 Quality: Aching, Similar to previous headaches Consistency: Constant Improves With: Nothing Worsens With: None Associated Symptoms: Nausea, Vomiting Treatments Prior to Arrival: None - Related Data Home Medications Medication Instructions Recorded Confirmed Last Taken Tramadol HCl 50 mg PO DAILY 06/29/18 06/29/18 Unknown Allergies Allergy/AdvReac Type Severity Reaction Status Date / Time Sulfa (Sulfonamide Allergy HIVES Verified 06/16/18 12:03 Antibiotics) Travel Screening - Travel/Exposure Within Last 30 Days Have you traveled within the last 30 days?: No Review of Systems Reviewed: No additional complaints except as noted below Constitutional: Reports: As per HPI. Denies: Chills, Fever, Malaise, Night sweats, Weakness, Weight change Eyes: Reports: As per HPI. Denies: Eye discharge, Eye pain, Photophobia, Vision change ENT: Reports: As per HPI. Denies: Congestion, Dental pain, Ear pain, Epistaxis , Hearing loss, Throat pain Respiratory: Reports: As per HPI. Denies: Cough, Dyspnea, Hemoptysis, Stridor, Wheezes Cardiovascular: Reports: As per HPI. Denies: Arrhythmia, Chest pain, Dyspnea on exertion, Edema, Murmurs, Orthopnea, Palpitations, Paroxysmal nocturnal dyspnea, Rheumatic Fever, Syncope Endocrine: Reports: As per HPI. Denies: Fatigue, Heat or cold intolerance, Polydipsia, Polyuria Gastrointestinal: Reports: As per HPI, Nausea, Vomiting. Denies: Abdominal pain , Constipation, Diarrhea, Hematemesis, Hematochezia, Melena Genitourinary: Reports: As per HPI. Denies: Abnormal menses, Discharge, Dyspareunia, Dysuria, Frequency, Hematuria, Incontinence, Retention, Urgency Musculoskeletal: Reports: As per HPI. Denies: Arthralgia, Back pain, Gout, Joint swelling, Myalgia, Neck pain Skin: Reports: As per HPI. Denies: Bruising, Change in color, Change in hair/ nails, Lesions, Pruritus, Rash Neurological: Reports: As per HPI, Headache. Denies: Abnormal gait, Confusion, Numbness, Paresthesias, Seizure, Tingling, Tremors, Vertigo, Weakness Psychiatric: Reports: As per HPI. Denies: Anxiety, Auditory hallucinations, Depression, Homicidal thoughts, Suicidal thoughts, Visual hallucinations Hematological/Lymphatic: Reports: As per HPI. Denies: Anemia, Blood Clots, Easy bleeding, Easy bruising, Swollen glands Past Medical History - SOCIAL HISTORY Smoking Status: Former smoker Alcohol Use: None Drug Use: None - RESPIRATORY Hx Respiratory Disorders: No - CARDIOVASCULAR Hx Cardio Disorders: No - NEURO Hx Neuro Disorders: Yes Hx Headaches: Yes Comment:: temporal neuralgia/ seen neuro 05/11/18/ and pain clinic - GI Hx GI Disorders: Yes Hx Irritable Bowel: Yes - Hx Genitourinary Disorders: Yes Hx UTI: Yes - ENDOCRINE Hx Endocrine Disorders: No - MUSCULOSKELETAL Hx Musculoskeletal Disorders: No - PSYCH Hx Psych Problems: Yes Hx Anxiety: Yes - HEMATOLOGY/ONCOLOGY Hx Hematology/Oncology Disorders: No Family Medical History Any Significant Family History?: Yes Hx Heart Disease: Grandparents Physical Exam - General General Appearance: Alert, Oriented x3, Cooperative, Mild distress - Head Head exam: Normal inspection - Eye Eye exam: Normal appearance, PERRL, EOMI Pupils: Normal accommodation - ENT ENT exam: Normal exam, Mucous membranes moist, Normal external ear exam, Normal orophraynx Ear exam: Normal external inspection. negative: External canal tenderness Nasal Exam: Normal inspection. negative: Discharge, Sinus tenderness Mouth exam: Normal external inspection, Tongue normal Teeth exam: Normal inspection. negative: Dental caries Throat exam: Normal inspection. negative: Tonsillar erythema, Tonsillar exudate - Neck Neck exam: Normal inspection, Full ROM. negative: Tenderness - Respiratory Respiratory exam: Normal lung sounds bilaterally. negative: Respiratory distress - Cardiovascular Cardiovascular Exam: Regular rate, Normal rhythm, Normal heart sounds - GI/Abdominal GI/Abdominal exam: Soft, Normal bowel sounds. negative: Tenderness - Rectal Rectal exam: Deferred - exam: Deferred - Extremities Extremities exam: Normal inspection, Full ROM, Normal capillary refill. negative: Tenderness - Back Back exam: Reports: Normal inspection, Full ROM. Denies: Muscle spasm, Rash noted, Tenderness - Neurological Neurological exam: Alert, CN II-XII intact, Normal gait, Oriented X3 - Psychiatric Psychiatric exam: Normal affect, Normal mood - Skin Skin exam: Dry, Intact, Normal color, Warm Course Vital Signs 06/29/18 11:37 Temperature 98.3 F Pulse Rate 133 H Respiratory 18 Rate Blood Pressure 122/89 Pulse Ox 92 L - Reevaluation(s) Reevaluation #1: 06/29/18 14:13 pt feels better. pt was given the meds that she says always help her Disposition Disposition: Discharge Clinical Impression: Migraine Qualifiers: Migraine type: without aura Status migrainosus presence: without status migrainosus Intractability: not intractable Qualified Code(s): G43.009 - Migraine without aura, not intractable, without status migrainosus Disposition: Home, Self-Care Condition: (1) Good Instructions: Migraine Headache (ED) Additional Instructions: follow up with family doctor and neurologist. return sooner if worse. push fluids. rest Forms: Patient Portal Access Quality - Quality Measures Quality Measures: Headache (All Ages) - Headache: Neuroimaging Quality Measure: Measure #419: Overuse of Neuroimaging ICD10 Codes Entered: Yes Neurological Exam: Patient had a normal neurological exam. [G9535] Headache: Use of Neuroimaging: < CTA, CT, MRA or MRI was NOT ordered > [G9534] - Blood Pressure Screening Does Patient Have Any of the Following: No Blood Pressure Classification: Pre-Hypertensive BP Reading Systolic Measurement: 122 Diastolic Measurement: 89 Screening for High Blood Pressure: < Pre-Hypertensive BP, F/U Documented > [ G8950] Pre-Hypertensive Follow-up Interventions: Follow-up with rescreen every year.
== END 2018-06-29 15:13 | disposition home or self-care (01) ==
LOC: ER 11:32
DX: G43.009 Migraine without aura, not intractable, without status migrainosus (principal); R11.2 Nausea with vomiting, unspecified; F17.210 Nicotine dependence, cigarettes, uncomplicated
CPT/HCPCS: 96361; 96365; 96366; 96375; 99284; J1200; J2765; J7030

== ENCOUNTER 2018-08-12 19:09 | Emergency (ER) | payer MEDICAID ==
--- NOTE | 2018-08-12 19:19 | Emergency Department Record ---
History of Present Illness - General Stated Complaint: MIGRAINE Time Seen by Provider: 08/12/18 19:09 Source: Patient, Family Mode of Arrival: Ambulatory Limitations: No limitations - History of Present Illness Initial Comments: 28 yo female presents with a headache. She has migraines on the right side. The onset was this morning. She has nausea. The symptoms are typical in location and character with her normal migraines. She has a neurologist and a pain specialist. She has had one nerve blood in the last month but states she is to have a second one in another location. No fever or trauma. No vision changes. She is light sensitive. MD Complaint: "Migraine" -: Hour(s) Onset Description: Gradual Location: Frontal, Right, Temporal Severity: Moderate Quality: Sharp Consistency: Constant Improves With: Nothing Worsens With: Light Associated Symptoms: Photophobia, Vomiting Treatments Prior to Arrival: Other - Related Data Allergies Allergy/AdvReac Type Severity Reaction Status Date / Time Sulfa (Sulfonamide Allergy HIVES Verified 06/16/18 12:03 Antibiotics) Review of Systems Constitutional: Denies: Chills, Fever, Malaise, Weakness Eyes: Reports: Eye pain, Photophobia. Denies: Eye discharge ENT: Denies: Congestion, Dental pain, Throat pain Respiratory: Denies: Cough Cardiovascular: Denies: Chest pain, Syncope Endocrine: Denies: Fatigue Gastrointestinal: Reports: Nausea, Vomiting. Denies: Abdominal pain, Diarrhea Genitourinary: Denies: Dysuria, Urgency Musculoskeletal: Denies: Back pain, Myalgia, Neck pain Skin: Denies: Bruising, Change in color, Rash Neurological: Reports: Headache. Denies: Confusion, Numbness, Tingling, Tremors , Vertigo, Weakness Psychiatric: Reports: Anxiety Hematological/Lymphatic: Denies: Blood Clots, Easy bleeding, Easy bruising Past Medical History - SOCIAL HISTORY Smoking Status: Former smoker Drug Use: None - RESPIRATORY Hx Respiratory Disorders: No - CARDIOVASCULAR Hx Cardio Disorders: No - NEURO Hx Neuro Disorders: Yes Hx Headaches: Yes Comment:: temporal neuralgia/ seen neuro 05/11/18/ and pain clinic - GI Hx GI Disorders: Yes Hx Irritable Bowel: Yes - Hx Genitourinary Disorders: Yes Hx UTI: Yes - ENDOCRINE Hx Endocrine Disorders: No - MUSCULOSKELETAL Hx Musculoskeletal Disorders: No - PSYCH Hx Psych Problems: Yes Hx Anxiety: Yes - HEMATOLOGY/ONCOLOGY Hx Hematology/Oncology Disorders: No Family Medical History Hx Heart Disease: Grandparents Physical Exam - General General Appearance: Alert, Oriented x3, Cooperative, No acute distress Limitations: No limitations - Head Head exam: Atraumatic, Normocephalic, Normal inspection - Eye Eye exam: PERRL, EOMI. negative: Normal appearance, Conjunctival injection, Nystagmus, Periorbital swelling, Scleral icterus - ENT ENT exam: Normal exam, Mucous membranes moist Ear exam: Normal external inspection Nasal Exam: Normal inspection Mouth exam: Normal external inspection - Neck Neck exam: Normal inspection. negative: Lymphadenopathy, Meningismus, Tenderness - Respiratory Respiratory exam: Normal lung sounds bilaterally. negative: Respiratory distress - Cardiovascular Cardiovascular Exam: Normal rhythm, Normal heart sounds, Tachycardia - GI/Abdominal GI/Abdominal exam: Soft, Tenderness - Rectal Rectal exam: Deferred - exam: Deferred - Extremities Extremities exam: Normal inspection. negative: Pedal edema - Back Back exam: Denies: CVA tenderness (R), CVA tenderness (L) - Neurological Neurological exam: Alert, CN II-XII intact, Normal gait, Oriented X3, Reflexes normal. negative: Abnormal gait, Altered, Motor sensory deficit - Psychiatric Psychiatric exam: Normal affect, Normal mood - Skin Skin exam: Dry, Intact, Normal color, Warm Course Vital Signs 08/12/18 19:13 Temperature 98.7 F Pulse Rate [ 129 H Pulse Ox Probe] Respiratory 20 Rate Blood Pressure 130/95 [Left Arm] Pulse Ox 97 - Reevaluation(s) Reevaluation #1: EMR reviewed Headache is typical Prior treatment medications reviewed 08/12/18 19:21 08/12/18 21:12 The questions were answered at the time of discharge. The patient is doing well and is comfortable with DC. DC vitals were reviewed. We discussed at length reasons to immediately return to the ED as well as close follow up. The patient will call the PCP for close follow up of this ED visit to review this visit and the tests performed Disposition Disposition: Discharge Clinical Impression: Migraine Qualifiers: Migraine type: unspecified Status migrainosus presence: without status migrainosus Intractability: not intractable Qualified Code(s): G43.909 - Migraine, unspecified, not intractable, without status migrainosus Disposition: Home, Self-Care Condition: (1) Good Instructions: Migraine Headache (ED) Additional Instructions: Take the prescriptions provided today as directed. Call your family doctor. Call to schedule the next available appointment for a recheck. Return to ED if your symptoms worsen or if you have any new concerns. Review the final Emergency Record and test results with your doctor on follow up Time of Disposition: 21:12 Quality - Quality Measures Quality Measures: N/A, Headache (All Ages) - Headache: Neuroimaging Quality Measure: Measure #419: Overuse of Neuroimaging ICD10 Codes Entered: Yes Neurological Exam: Patient had a normal neurological exam. [G9535] Headache: Use of Neuroimaging: < CTA, CT, MRA or MRI was NOT ordered > [G9534] - Blood Pressure Screening Does Patient Have Any of the Following: No Blood Pressure Classification: Hypertensive Reading Systolic Measurement: 130 Diastolic Measurement: 95 Screening for High Blood Pressure: < Pre-Hypertensive BP, F/U Documented > [ G8950] Pre-Hypertensive Follow-up Interventions: Referral to alternative/primary care provider.
[2018-08-12] MEDS ORDERED: METOCLOPRAMIDE HCL 10 MG/2 ML VIAL IVP ONE (19:21)
[2018-08-12] MEDS ORDERED: DIPHENHYDRAMINE HCL 50 MG/ML VIAL IVP ONE (19:21)
[2018-08-12] MEDS ORDERED: SODIUM CHLORIDE 0.9% IVPB ONE (19:21)
[2018-08-12] MEDS ORDERED: 0.9 % SODIUM CHLORIDE 1,000 ML BAG IV ONE (19:21)
[2018-08-12] MEDS ORDERED: HALOPERIDOL LACTATE IVPB ONE (19:21)
== END 2018-08-12 21:38 | disposition home or self-care (01) ==
LOC: ER 19:09
DX: G43.909 Migraine, unspecified, not intractable, without status migrainosus (principal); Z87.891 Personal history of nicotine dependence; R11.2 Nausea with vomiting, unspecified
CPT/HCPCS: 96365; 96375; 99284; J1200; J2765; J7030

== ENCOUNTER 2018-10-23 13:03 | Emergency (ER) | payer MEDICAID ==
[2018-10-23] MEDS: HALOPERIDOL LACTATE 5 MG/ML VIAL IM ONE (13:53)
[2018-10-23] MEDS: DIPHENHYDRAMINE HCL 50 MG/ML VIAL IM ONE (13:54)
--- NOTE | 2018-10-23 14:29 | Emergency Department Record ---
History of Present Illness - General Chief Complaint: Headache Migraine Stated Complaint: DELGADO Time Seen by Provider: 10/23/18 13:28 Source: Patient Mode of Arrival: Ambulatory Limitations: No limitations - History of Present Illness Initial Comments: pt is having her typical migraine MD Complaint: "Migraine" Onset/Timin -: Days(s) Onset Description: Gradual Location: Right Severity: Moderate Severity scale (1-10): 9 Quality: Aching Consistency: Constant, Intermittent Improves With: Nothing Associated Symptoms: Nausea Treatments Prior to Arrival: Migraine medication, Other - Related Data Home Medications Medication Instructions Recorded Confirmed Last Taken Apixaban [Eliquis] 5 mg PO BID 10/23/18 10/23/18 10/23/18 Allergies Allergy/AdvReac Type Severity Reaction Status Date / Time Sulfa (Sulfonamide Allergy HIVES Verified 10/23/18 13:12 Antibiotics) Travel Screening - Travel/Exposure Within Last 30 Days Have you traveled within the last 30 days?: No - Travel/Exposure Within Last Year Have you traveled outside the [place] in the last year?: No - Additonal Travel Details Have you been exposed to anyone with a communicable illness?: No - Travel Symptoms Symptom Screening: None Review of Systems Reviewed: No additional complaints except as noted below Constitutional: Reports: As per HPI. Denies: Chills, Fever, Malaise, Night sweats, Weakness, Weight change Eyes: Reports: As per HPI. Denies: Eye discharge, Eye pain, Photophobia, Vision change ENT: Reports: As per HPI. Denies: Congestion, Dental pain, Ear pain, Epistaxis , Hearing loss, Throat pain Respiratory: Reports: As per HPI. Denies: Cough, Dyspnea, Hemoptysis, Stridor, Wheezes Cardiovascular: Reports: As per HPI. Denies: Arrhythmia, Chest pain, Dyspnea on exertion, Edema, Murmurs, Orthopnea, Palpitations, Paroxysmal nocturnal dyspnea, Rheumatic Fever, Syncope Endocrine: Reports: As per HPI. Denies: Fatigue, Heat or cold intolerance, Polydipsia, Polyuria Gastrointestinal: Reports: As per HPI. Denies: Abdominal pain, Constipation, Diarrhea, Hematemesis, Hematochezia, Melena, Nausea, Vomiting Genitourinary: Reports: As per HPI. Denies: Abnormal menses, Discharge, Dyspareunia, Dysuria, Frequency, Hematuria, Incontinence, Retention, Urgency Musculoskeletal: Reports: As per HPI. Denies: Arthralgia, Back pain, Gout, Joint swelling, Myalgia, Neck pain Skin: Reports: As per HPI. Denies: Bruising, Change in color, Change in hair/ nails, Lesions, Pruritus, Rash Neurological: Reports: As per HPI. Denies: Abnormal gait, Confusion, Headache, Numbness, Paresthesias, Seizure, Tingling, Tremors, Vertigo, Weakness Psychiatric: Reports: As per HPI. Denies: Anxiety, Auditory hallucinations, Depression, Homicidal thoughts, Suicidal thoughts, Visual hallucinations Hematological/Lymphatic: Reports: As per HPI. Denies: Anemia, Blood Clots, Easy bleeding, Easy bruising, Swollen glands Past Medical History - SOCIAL HISTORY Smoking Status: Former smoker Alcohol Use: None Drug Use: None - RESPIRATORY Hx Pulmonary Embolism: Yes - CARDIOVASCULAR Hx Cardio Disorders: Yes Hx Deep Vein Thrombosis: Yes - NEURO Hx Neuro Disorders: Yes Hx Headaches: Yes Comment:: temporal neuralgia/ seen neuro 05/11/18/ and pain clinic - GI Hx GI Disorders: Yes Hx Irritable Bowel: Yes - Hx Genitourinary Disorders: Yes Hx UTI: Yes - ENDOCRINE Hx Endocrine Disorders: No - MUSCULOSKELETAL Hx Musculoskeletal Disorders: No - PSYCH Hx Psych Problems: Yes Hx Anxiety: Yes Hx Depression: Yes (zoloft) - HEMATOLOGY/ONCOLOGY Hx Hematology/Oncology Disorders: No Family Medical History Any Significant Family History?: Yes Hx Diabetes: Grandparents Hx Heart Disease: Father, Grandparents Physical Exam - General General Appearance: Alert, Oriented x3, Cooperative, Mild distress - Head Head exam: Normal inspection - Eye Eye exam: Normal appearance, PERRL, EOMI Pupils: Normal accommodation - ENT ENT exam: Normal exam, Mucous membranes moist, Normal external ear exam, Normal orophraynx Ear exam: Normal external inspection. negative: External canal tenderness Nasal Exam: Normal inspection. negative: Discharge, Sinus tenderness Mouth exam: Normal external inspection, Tongue normal Teeth exam: Normal inspection. negative: Dental caries Throat exam: Normal inspection. negative: Tonsillar erythema, Tonsillar exudate - Neck Neck exam: Normal inspection, Full ROM. negative: Tenderness - Respiratory Respiratory exam: Normal lung sounds bilaterally. negative: Respiratory distress - Cardiovascular Cardiovascular Exam: Normal rhythm, Normal heart sounds, Tachycardia - GI/Abdominal GI/Abdominal exam: Soft, Normal bowel sounds. negative: Tenderness - Rectal Rectal exam: Deferred - exam: Deferred - Extremities Extremities exam: Normal inspection, Full ROM, Normal capillary refill. negative: Tenderness - Back Back exam: Reports: Normal inspection, Full ROM. Denies: Muscle spasm, Rash noted, Tenderness - Neurological Neurological exam: Alert, CN II-XII intact, Normal gait, Oriented X3 - Psychiatric Psychiatric exam: Normal affect, Normal mood - Skin Skin exam: Dry, Intact, Normal color, Warm Course Vital Signs 10/23/18 13:05 Temperature 98.0 F Pulse Rate 114 H Respiratory 18 Rate Blood Pressure 127/96 Pulse Ox 92 L Disposition Disposition: Discharge Clinical Impression: Migraine Qualifiers: Migraine type: unspecified Status migrainosus presence: without status migrainosus Intractability: not intractable Qualified Code(s): G43.909 - Migraine, unspecified, not intractable, without status migrainosus Disposition: Home, Self-Care Condition: (1) Good Instructions: Migraine Headache (ED) Additional Instructions: follow up with family doctor. return sooner if worse. Forms: Patient Portal Access Quality - Quality Measures Quality Measures: Headache (All Ages) - Headache: Neuroimaging Quality Measure: Measure #419: Overuse of Neuroimaging ICD10 Codes Entered: Yes Neurological Exam: Patient had a normal neurological exam. [G9535] Headache: Use of Neuroimaging: < CTA, CT, MRA or MRI was NOT ordered > [G9534] - Blood Pressure Screening Does Patient Have Any of the Following: No Blood Pressure Classification: Hypertensive Reading Systolic Measurement: 127 Diastolic Measurement: 96 Screening for High Blood Pressure: < First Hypertensive BP, F/U Documented > [ G8950] First Hypertensive Follow-up Interventions: Follow-up with rescreen GT 1 day and LT 4 weeks.
== END 2018-10-23 14:54 | disposition home or self-care (01) ==
LOC: ER 13:03
DX: G43.909 Migraine, unspecified, not intractable, without status migrainosus (principal); R11.0 Nausea; Z87.891 Personal history of nicotine dependence
CPT/HCPCS: 96372; 99283; J1200; J1630

== ENCOUNTER 2018-10-30 07:41 | Emergency (ER) | payer MEDICAID ==
--- NOTE | 2018-10-30 08:18 | Emergency Department Record ---
History of Present Illness - General Chief complaint: Lower Extremity Pain Stated complaint: RIGHT LEG DVT Time Seen by Provider: 10/30/18 08:07 Source: Patient Mode of Arrival: Ambulatory Limitations: No limitations - History of Present Illness Initial comments: 28 yo female presents with continues right leg pain. She was diagnosed with a DVT on 10/09/18. She noted a few "lumps" in her calf that she feels are new. She is on Eliquis with perfect compliance. No chest pain or shortness of breath. She has had runny nose, congestion, fever and cough for two days. She got her influenza shot two week ago. MD Complaint: Extremity pain Onset/Timin -: Days(s) Location: Right, Lower Leg History of Same: Yes -: Yes Myalgia Radiation: None, Distal Severity scale (1-10): 9 Quality: Aching Consistency: Constant, Getting worse Improves with: Nothing Worsens with: Exertion, Walking, Weight bearing Associated Symptoms: Denies other symptoms - Related Data Allergies Allergy/AdvReac Type Severity Reaction Status Date / Time Sulfa (Sulfonamide Allergy HIVES Verified 10/23/18 13:12 Antibiotics) Travel Screening - Travel/Exposure Within Last 30 Days Have you traveled within the last 30 days?: No - Travel/Exposure Within Last Year Have you traveled outside the [place] in the last year?: No - Additonal Travel Details Have you been exposed to anyone with a communicable illness?: No - Travel Symptoms Symptom Screening: None Review of Systems Constitutional: Reports: Chills, Fever, Malaise Eyes: Denies: Eye discharge ENT: Reports: Congestion, Throat pain. Denies: Ear pain Respiratory: Reports: Cough. Denies: Dyspnea Cardiovascular: Denies: Chest pain, Palpitations, Syncope Endocrine: Denies: Fatigue Gastrointestinal: Denies: Abdominal pain, Diarrhea, Nausea, Vomiting Genitourinary: Denies: Dysuria, Urgency Musculoskeletal: Reports: Myalgia. Denies: Arthralgia, Back pain Skin: Denies: Bruising, Change in color, Rash Neurological: Denies: Headache Psychiatric: Denies: Anxiety Hematological/Lymphatic: Reports: Blood Clots. Denies: Easy bleeding, Easy bruising, Swollen glands Past Medical History - SOCIAL HISTORY Smoking Status: Former smoker Alcohol Use: None Drug Use: None - RESPIRATORY Hx Respiratory Disorders: No Hx Pulmonary Embolism: Yes - CARDIOVASCULAR Hx Cardio Disorders: Yes Hx Deep Vein Thrombosis: Yes - NEURO Hx Neuro Disorders: Yes Hx Headaches: Yes Comment:: temporal neuralgia/ seen neuro 05/11/18/ and pain clinic - GI Hx GI Disorders: Yes Hx Irritable Bowel: Yes - Hx Genitourinary Disorders: Yes Hx UTI: Yes - ENDOCRINE Hx Endocrine Disorders: No - MUSCULOSKELETAL Hx Musculoskeletal Disorders: No - PSYCH Hx Psych Problems: Yes Hx Anxiety: Yes Hx Depression: Yes (zoloft) - HEMATOLOGY/ONCOLOGY Hx Hematology/Oncology Disorders: Yes Hx Clotting Problems: Yes (dvt,pe) Family Medical History Any Significant Family History?: Yes Hx Diabetes: Grandparents Hx Heart Disease: Father, Grandparents Physical Exam - General General Appearance: Alert, Oriented x3, Cooperative, No acute distress Limitations: No limitations - Head Head exam: Atraumatic, Normal inspection - Eye Eye exam: Normal appearance. negative: Conjunctival injection - ENT ENT exam: Normal exam, Mucous membranes moist Ear exam: Normal external inspection Nasal Exam: Normal inspection Mouth exam: Normal external inspection - Neck Neck exam: Normal inspection - Respiratory Respiratory exam: Normal lung sounds bilaterally. negative: Respiratory distress, Rhonchi, Stridor, Wheezes - Cardiovascular Cardiovascular Exam: Tachycardia - GI/Abdominal GI/Abdominal exam: Soft. negative: Tenderness - Rectal Rectal exam: Deferred - exam: Deferred - Extremities Extremities exam: Normal inspection, Calf tenderness, Full ROM, Tenderness. negative: Joint swelling, Normal capillary refill, Pedal edema - Back Back exam: Denies: CVA tenderness (R), CVA tenderness (L) - Neurological Neurological exam: Alert, Oriented X3 - Psychiatric Psychiatric exam: Normal affect, Normal mood - Skin Skin exam: Dry, Intact, Normal color, Warm Course Vital Signs 10/30/18 07:45 Temperature 98.8 F Pulse Rate 118 H Respiratory 20 Rate Blood Pressure 130/99 Pulse Ox 96 - Reevaluation(s) Reevaluation #1: The patient has follow up on Friday with Dr Sebastian for her Eliquis. She has 1.5 weeks left at home. 10/30/18 08:17 10/30/18 08:55 Influenza Negative 10/30/18 10:29 The Venous doppler demonstrates non occlusive DVT of distal common femoral and popliteal vein. In comparison to 10/09 this is greatly improved. Disposition Disposition: Discharge Clinical Impression: DVT (deep venous thrombosis) Disposition: Home, Self-Care Condition: (1) Good Instructions: Deep Vein Thrombosis Prevention (ED) Additional Instructions: Follow up on Friday as scheduled Be seen if fever, chest pain, short of breath Continue your Eliquis as directed without missing any doses. Forms: Patient Portal Access Time of Disposition: 10:30 Quality - Quality Measures Quality Measures: N/A - Blood Pressure Screening Does Patient Have Any of the Following: No Blood Pressure Classification: Hypertensive Reading Systolic Measurement: 130 Diastolic Measurement: 99 Screening for High Blood Pressure: < Pre-Hypertensive BP, F/U Documented > [ G8950] Pre-Hypertensive Follow-up Interventions: Referral to alternative/primary care provider.
[2018-10-30 08:44] LABS: INFLUENZA A NEGATIVE (NEGATIVE); INFLUENZA B NEGATIVE (NEGATIVE)
--- NOTE | 2018-10-31 11:15 | US VENOUS DOPPLER REPORT ---
DATE: 10/30/2018. EXAM: ULTRASOUND OF THE DEEP VENOUS SYSTEM OF THE RIGHT LOWER EXTREMITY. HISTORY: PAIN AND SWELLING. TECHNIQUE: Sonographic evaluation of the deep venous system of the right lower extremity was performed with the addition of Doppler and compression augmentation. FINDINGS: There is suggestion of an nonocclusive deep vein vein thrombosis in the distal femoral and popliteal veins. The remainder of the vasculature is widely patent. IMPRESSION: FINDINGS SUGGESTIVE OF NONOCCLUSIVE DEEP VEIN THROMBOSIS IN THE DISTAL FEMORAL AND POPLITEAL VEINS. JOB NUMBER: [id number] [facility]
== END 2018-10-30 10:45 | disposition home or self-care (01) ==
LOC: ER 07:41
DX: I82.4Z1 Acute embolism and thrombosis of unspecified deep veins of right distal lower extremity (principal); R09.81 Nasal congestion; R05 Cough; Z79.01 Long term (current) use of anticoagulants; F17.210 Nicotine dependence, cigarettes, uncomplicated
CPT/HCPCS: 87400; 99283

== ENCOUNTER 2018-11-17 13:45 | Emergency (ER) | payer MEDICAID ==
--- NOTE | 2018-11-17 14:18 | Emergency Department Record ---
History of Present Illness - General Chief Complaint: Headache Migraine Stated Complaint: HEADACHE Time Seen by Provider: 11/17/18 13:50 Source: Patient Mode of Arrival: Ambulatory Limitations: No limitations - History of Present Illness Initial Comments: 28 yo female presents with a right sided headed on set this morning. The pain is sharp. She has a significant history of similar migraines over the last year. She has had CT scans, MRI's, Neurologist, Pain specialist. She states she has significant anxiety as well. She states she worries frequently that her headaches are from some other cause. The location is the same. No fever. No trauma. No vision changes. No new or significantly different symptoms. Her neurologist and pain specialist are in [place]. Complaint: Headache, "Migraine" -: Hour(s) Onset Description: Gradual Location: Frontal, Right Severity: Moderate Quality: Sharp Consistency: Constant Improves With: Nothing Worsens With: None Context: Other Associated Symptoms: Photophobia Treatments Prior to Arrival: None - Related Data Allergies Allergy/AdvReac Type Severity Reaction Status Date / Time Sulfa (Sulfonamide Allergy HIVES Verified 11/17/18 14:27 Antibiotics) Review of Systems Constitutional: Denies: Chills, Fever, Malaise, Weakness Eyes: Reports: Photophobia. Denies: Eye discharge, Eye pain, Vision change ENT: Denies: Congestion, Throat pain Respiratory: Denies: Cough, Dyspnea Cardiovascular: Denies: Chest pain, Palpitations, Syncope Endocrine: Denies: Fatigue Gastrointestinal: Denies: Abdominal pain, Diarrhea, Nausea, Vomiting Genitourinary: Denies: Dysuria, Urgency Musculoskeletal: Denies: Arthralgia, Back pain, Joint swelling, Myalgia Skin: Denies: Bruising, Change in color, Rash Neurological: Reports: Headache. Denies: Abnormal gait, Confusion, Numbness, Paresthesias, Seizure, Tingling, Tremors, Vertigo, Weakness Psychiatric: Reports: Anxiety Hematological/Lymphatic: Denies: Blood Clots, Easy bleeding, Easy bruising Past Medical History - SOCIAL HISTORY Smoking Status: Former smoker Drug Use: None - RESPIRATORY Hx Respiratory Disorders: No Hx Pulmonary Embolism: Yes - CARDIOVASCULAR Hx Cardio Disorders: Yes Hx Deep Vein Thrombosis: Yes - NEURO Hx Neuro Disorders: Yes Hx Headaches: Yes Comment:: temporal neuralgia/ seen neuro 05/11/18/ and pain clinic - GI Hx GI Disorders: Yes Hx Irritable Bowel: Yes - Hx Genitourinary Disorders: Yes Hx UTI: Yes - ENDOCRINE Hx Endocrine Disorders: No - MUSCULOSKELETAL Hx Musculoskeletal Disorders: No - PSYCH Hx Psych Problems: Yes Hx Anxiety: Yes Hx Depression: Yes (zoloft) - HEMATOLOGY/ONCOLOGY Hx Hematology/Oncology Disorders: Yes Hx Clotting Problems: Yes (dvt,pe) Family Medical History Hx Diabetes: Grandparents Hx Heart Disease: Father, Grandparents Physical Exam - General General Appearance: Alert, Oriented x3, Cooperative, No acute distress Limitations: No limitations - Head Head exam: Atraumatic, Normal inspection - Eye Eye exam: Normal appearance, PERRL, EOMI. negative: Conjunctival injection, Nystagmus, Periorbital swelling, Scleral icterus Pupils: Normal accommodation. negative: Irregular, Unequal - ENT ENT exam: Normal exam, Mucous membranes moist Ear exam: Normal external inspection Nasal Exam: Normal inspection Mouth exam: Normal external inspection Teeth exam: Normal inspection Throat exam: Normal inspection - Neck Neck exam: Normal inspection, Full ROM. negative: Tenderness - Respiratory Respiratory exam: Normal lung sounds bilaterally. negative: Respiratory distress - Cardiovascular Cardiovascular Exam: Regular rate, Normal rhythm, Normal heart sounds - GI/Abdominal GI/Abdominal exam: Soft. negative: Tenderness - Rectal Rectal exam: Deferred - exam: Deferred - Extremities Extremities exam: Normal inspection - Back Back exam: Denies: CVA tenderness (R), CVA tenderness (L) - Neurological Neurological exam: Alert, CN II-XII intact, Normal gait, Oriented X3, Reflexes normal. negative: Abnormal gait, Altered, Motor sensory deficit - Psychiatric Psychiatric exam: Anxious - Skin Skin exam: Dry, Intact, Normal color, Warm Course - Reevaluation(s) Reevaluation #1: 11/17/18 15:13 The patient was rechecked She is doing much better at this time The headache is nearly resolved I reassured her, her prior scans and MRI were normal. Her examination is normal today. No new features to her headache to suggest a new process. We discussed the risks and benefits of additional radiation exposure with her prior multiple scans in the past. Disposition Disposition: Discharge Clinical Impression: Migraine Qualifiers: Migraine type: unspecified Status migrainosus presence: without status migrainosus Intractability: not intractable Qualified Code(s): G43.909 - Migraine, unspecified, not intractable, without status migrainosus Disposition: Home, Self-Care Condition: (1) Good Instructions: Migraine Headache (ED) Additional Instructions: Call your doctor for the next available follow up appointment Return to the ER for a recheck if worse, any new concerns or questions Review this ER visit and the tests performed with your family doctor Forms: Patient Portal Access Time of Disposition: 15:14 Quality - Quality Measures Quality Measures: N/A, Headache (All Ages) - Headache: Neuroimaging Quality Measure: Measure #419: Overuse of Neuroimaging ICD10 Codes Entered: Yes Neurological Exam: Patient had a normal neurological exam. [G9535] Headache: Use of Neuroimaging: < CTA, CT, MRA or MRI was NOT ordered > [G9534] - Blood Pressure Screening Does Patient Have Any of the Following: No Blood Pressure Classification: Pre-Hypertensive BP Reading Systolic Measurement: 125 Diastolic Measurement: 64 Screening for High Blood Pressure: < Pre-Hypertensive BP, F/U Documented > [ G8950] Pre-Hypertensive Follow-up Interventions: Referral to alternative/primary care provider.
[2018-11-17] MEDS: DIPHENHYDRAMINE HCL 50 MG/ML VIAL IM ONE (14:32)
[2018-11-17] MEDS: HALOPERIDOL LACTATE 5 MG/ML VIAL IM ONE (14:32)
== END 2018-11-17 15:36 | disposition home or self-care (01) ==
LOC: ER 13:45
DX: G43.909 Migraine, unspecified, not intractable, without status migrainosus (principal); H53.149 Visual discomfort, unspecified; Z87.891 Personal history of nicotine dependence
CPT/HCPCS: 96372; 99283; J1200; J1630

== ENCOUNTER 2018-11-21 15:49 | Emergency (ER) | payer MEDICAID ==
[2018-11-21] MEDS ORDERED: DIPHENHYDRAMINE HCL 50 MG/ML VIAL IM ONE (16:18)
[2018-11-21] MEDS ORDERED: HALOPERIDOL LACTATE 5 MG/ML VIAL IM ONE (16:18)
--- NOTE | 2018-11-21 16:19 | Emergency Department Record ---
History of Present Illness - General Chief Complaint: Headache Migraine Stated Complaint: DELGADO Time Seen by Provider: 11/21/18 16:09 Source: Patient, Family (mother) Mode of Arrival: Ambulatory Limitations: No limitations - History of Present Illness Initial Comments: Pt with recurrent hx of migraine headaches. This onset this AM. Typical in location and quality. Not worst of life. Took home meds without relief. Seen here 4 days ago for same. Has had extensive evaluation and testing with neurologist per patient and mothers history. No fever. No nausea. MD Complaint: "Migraine" Onset/Timin -: Days(s) Onset Description: Sudden Location: Right Severity: Severe Severity scale (1-10): 9 Quality: Sharp Consistency: Constant Worsens With: Light, Noise Associated Symptoms: Photophobia, Sensitivity to sound Treatments Prior to Arrival: Acetaminophen, Ibuprofen, Migraine medication Treatment Prior to Arrival Comment:: mariposa ruff - Symptoms of Stroke Onset of Symptoms Date: 11/17/18 Onset of Symptoms Time: 08:00 Symptom Onset Unknown: No - Related Data Home Medications Medication Instructions Recorded Confirmed Last Taken Pentosan Polysulfate Sodium 100 mg PO BID 11/21/18 11/21/18 11/21/18 [[place]miron] Allergies Allergy/AdvReac Type Severity Reaction Status Date / Time Sulfa (Sulfonamide Allergy HIVES Verified 11/17/18 14:27 Antibiotics) Travel Screening - Travel/Exposure Within Last 30 Days Have you traveled within the last 30 days?: No - Travel/Exposure Within Last Year Have you traveled outside the [place] in the last year?: No - Additonal Travel Details Have you been exposed to anyone with a communicable illness?: No - Travel Symptoms Symptom Screening: None Review of Systems Constitutional: Denies: Chills, Fever, Malaise Eyes: Reports: Photophobia. Denies: Eye discharge ENT: Denies: Congestion, Dental pain Respiratory: Denies: Cough, Dyspnea Cardiovascular: Denies: Arrhythmia, Palpitations, Syncope Endocrine: Denies: Fatigue, Polydipsia, Polyuria Gastrointestinal: Denies: Abdominal pain, Nausea, Vomiting Genitourinary: Denies: Dysuria Musculoskeletal: Denies: Arthralgia Skin: Denies: Bruising, Rash Neurological: Reports: As per HPI, Headache. Denies: Abnormal gait Psychiatric: Denies: Suicidal thoughts Hematological/Lymphatic: Denies: Anemia Past Medical History - SOCIAL HISTORY Smoking Status: Former smoker Alcohol Use: None Drug Use: None - RESPIRATORY Hx Respiratory Disorders: No Hx Pulmonary Embolism: Yes - CARDIOVASCULAR Hx Cardio Disorders: Yes Hx Deep Vein Thrombosis: Yes - NEURO Hx Neuro Disorders: Yes Hx Headaches: Yes Comment:: temporal neuralgia/ seen neuro 05/11/18/ and pain clinic - GI Hx GI Disorders: Yes Hx Irritable Bowel: Yes - Hx Genitourinary Disorders: Yes Hx UTI: Yes - ENDOCRINE Hx Endocrine Disorders: No - MUSCULOSKELETAL Hx Musculoskeletal Disorders: No - PSYCH Hx Psych Problems: Yes Hx Anxiety: Yes Hx Depression: Yes (zoloft) - HEMATOLOGY/ONCOLOGY Hx Hematology/Oncology Disorders: Yes Hx Clotting Problems: Yes (dvt,pe) Family Medical History Any Significant Family History?: Yes Hx Diabetes: Grandparents Hx Heart Disease: Father, Grandparents Physical Exam - General General Appearance: Alert, Oriented x3, Cooperative, Mild distress - Head Head exam: Atraumatic - Eye Eye exam: Normal appearance, PERRL, EOMI. negative: Nystagmus - ENT ENT exam: Normal exam, Mucous membranes moist, Normal external ear exam, Normal orophraynx, TM's normal bilaterally Ear exam: Normal external inspection Nasal Exam: Normal inspection Throat exam: Normal inspection. negative: Tonsillar erythema, Tonsillar exudate - Neck Neck exam: Normal inspection, Full ROM. negative: Tenderness - Respiratory Respiratory exam: Normal lung sounds bilaterally. negative: Respiratory distress - Cardiovascular Cardiovascular Exam: Regular rate, Normal rhythm, Normal heart sounds - GI/Abdominal GI/Abdominal exam: Soft, Normal bowel sounds. negative: Tenderness - Extremities Extremities exam: Normal inspection, Full ROM, Normal capillary refill. negative: Tenderness - Back Back exam: Reports: Normal inspection, Full ROM. Denies: Muscle spasm, Rash noted, Tenderness - Neurological Neurological exam: Alert, Normal gait, Oriented X3. negative: Motor sensory deficit - Psychiatric Psychiatric exam: Normal affect, Normal mood - Skin Skin exam: Normal color. negative: Rash Course Vital Signs 11/21/18 16:01 Temperature 98.1 F Pulse Rate 111 H Respiratory 18 Rate Blood Pressure 136/109 Pulse Ox 93 L - Reevaluation(s) Reevaluation #1: 11/21/18 16:35 IM meds as noted. Feeling better. Requested refill of meds. Suggested that would be best done by her primary care physician. Mother will drive home. Disposition Disposition: Discharge Clinical Impression: Migraine Disposition: Home, Self-Care Condition: (2) Stable Instructions: Migraine Headache (ED) Forms: Patient Portal Access Quality - Quality Measures Quality Measures: N/A, Headache (All Ages) - Headache: Neuroimaging Quality Measure: Measure #419: Overuse of Neuroimaging ICD10 Codes Entered: Yes Neurological Exam: Patient had a normal neurological exam. [G9535] Headache: Use of Neuroimaging: < CTA, CT, MRA or MRI was NOT ordered > [G9534] - Blood Pressure Screening Does Patient Have Any of the Following: No Blood Pressure Classification: Hypertensive Reading Systolic Measurement: 136 Diastolic Measurement: 109 Screening for High Blood Pressure: < Pre-Hypertensive BP, F/U Documented > [ G8950] Pre-Hypertensive Follow-up Interventions: Follow-up with rescreen every year.
== END 2018-11-21 17:05 | disposition home or self-care (01) ==
LOC: ER 15:49
DX: G43.909 Migraine, unspecified, not intractable, without status migrainosus (principal); H53.149 Visual discomfort, unspecified; H53.8 Other visual disturbances; Z87.891 Personal history of nicotine dependence
CPT/HCPCS: 96372; 99283; J1200; J1630

== ENCOUNTER 2018-12-31 14:49 | Emergency (ER) | payer MEDICAID ==
--- NOTE | 2018-12-31 15:18 | Emergency Department Record ---
History of Present Illness - General Chief complaint: Pain Stated complaint: CHEST DISCOMFORT Time Seen by Provider: 12/31/18 15:00 Source: Patient Mode of Arrival: Ambulatory Limitations: No limitations - History of Present Illness Initial comments: The patient is here due to CP for the last 3 hours. The onset was at rest and is described as a sharp stabbing in the anterior chest with no radiation. She is having mild SOB at times and the pain is worse with movement and twisting. She has been having similar pain like this intermittently for the last 2 weeks. The patient denies any recent leg pain, fevers, chills, or cough. The patient has no cardiac risk factors. MD Complaint: Other Onset/Timin -: Hour(s) Severity scale (1-10): 8 Quality: Other Consistency: Constant Improves with: Nothing Worsens with: Nothing Associated Symptoms: Denies other symptoms - Related Data Allergies Allergy/AdvReac Type Severity Reaction Status Date / Time Sulfa (Sulfonamide Allergy HIVES Verified 11/17/18 14:27 Antibiotics) Travel Screening - Travel/Exposure Within Last 30 Days Have you traveled within the last 30 days?: No Review of Systems Constitutional: Denies: Chills, Fever Eyes: Denies: Eye discharge ENT: Denies: Congestion Respiratory: Denies: Cough, Dyspnea Cardiovascular: Reports: Chest pain. Denies: Arrhythmia Endocrine: Denies: Fatigue Gastrointestinal: Denies: Nausea Genitourinary: Denies: Dysuria Musculoskeletal: Denies: Arthralgia Skin: Denies: Bruising Past Medical History - SOCIAL HISTORY Smoking Status: Former smoker Alcohol Use: None - RESPIRATORY Hx Respiratory Disorders: No Hx Pulmonary Embolism: Yes - CARDIOVASCULAR Hx Cardio Disorders: Yes Hx Deep Vein Thrombosis: Yes - NEURO Hx Neuro Disorders: Yes Hx Headaches: Yes Comment:: temporal neuralgia/ seen neuro 05/11/18/ and pain clinic - GI Hx GI Disorders: Yes Hx Irritable Bowel: Yes - Hx Genitourinary Disorders: Yes Hx UTI: Yes - ENDOCRINE Hx Endocrine Disorders: No - MUSCULOSKELETAL Hx Musculoskeletal Disorders: No - PSYCH Hx Psych Problems: Yes Hx Anxiety: Yes Hx Depression: Yes (zoloft) - HEMATOLOGY/ONCOLOGY Hx Hematology/Oncology Disorders: Yes Hx Clotting Problems: Yes (dvt,pe) Family Medical History Any Significant Family History?: Yes Hx Diabetes: Grandparents Hx Heart Disease: Father, Grandparents Physical Exam - General General Appearance: Alert, Oriented x3, Cooperative, Mild distress (Due to anxiety. (chronic)) - Head Head exam: Atraumatic, Normocephalic, Normal inspection - Eye Eye exam: Normal appearance, PERRL, EOMI - Neck Neck exam: Normal inspection, Full ROM. negative: Tenderness - Respiratory Respiratory exam: Normal lung sounds bilaterally, Chest wall tenderness (The CP is 100% reproducible to palpation over the L side of the sternum and also with chest rotation.). negative: Respiratory distress - Cardiovascular Cardiovascular Exam: Regular rate, Normal rhythm, Normal heart sounds, Tachycardia - GI/Abdominal GI/Abdominal exam: Soft, Normal bowel sounds. negative: Rebound, Rigid, Tenderness - Extremities Extremities exam: Normal inspection, Full ROM, Normal capillary refill. negative: Calf tenderness, Pedal edema, Tenderness Image of Full Body: 1 - Area of CP and tenderness to palpation. - Neurological Neurological exam: Alert, Normal gait. negative: Abnormal gait, Motor sensory deficit - Psychiatric Psychiatric exam: Anxious Course Vital Signs 12/31/18 14:54 Temperature 98.6 F Pulse Rate 124 H Respiratory 20 Rate Blood Pressure 133/107 Pulse Ox 96 - Reevaluation(s) Reevaluation #1: The patient is doing very well at this time. She still has very reproducible CP to palpation. I did discuss the lab results and the fact the workup was all neg including the D-dimer. It appears the cause of the pain is due to muskuloskeletal chest pain and probably anxiety. 12/31/18 16:24 Reevaluation #2: The patient is doing a lot better at this time and is very calm and cooperative. She states the pain is much improved and she also denies any anxiety or SOB. I did explain to her that her test results are all basically normal but that I would like to get a 3 hour Trop to be absolutely sure she is not having a cardiac event. The patient states she would like to leave and does not want to wait for the repeat testing. I explained to her that by not doing the 2nd set of enzymes we could be missing a small heart problem, and that could lead to a big heart problem at home. By leaving AMA she could go home and have an [place], stroke, become disabled and even . The patient understands and accepts the risks and understands we cannot be held liable for NOT performing the tests. She is to see her PCP JORY and to return to the ER for any problems. 12/31/18 17:12 Medical Decision Making - Data Complexity MDM Data: Labs Ordered and/or Reviewed, X-Ray Ordered and/or Reviewed, EKG Ordered and/or Reviewed - Lab Data Result diagrams: 12/31/18 15:35 12/31/18 15:35 - EKG Data -: EKG Interpreted by Me EKG: No Acute Changes, Unchanged From Previous - Radiology Data Radiology results: Report reviewed (CXR: Neg.) Disposition Disposition: Discharge Clinical Impression: Acute chest wall pain Disposition: Against Medical Advice Condition: (2) Stable Instructions: Chest Wall Pain (ED) Additional Instructions: Please take your home pain medicines and please see your family doctor next week for recheck. Return to the ER for any worsening pain, trouble breathing or fevers. Forms: Patient Portal Access Time of Disposition: 17:16 Quality - Quality Measures Quality Measures: Headache (All Ages) - Headache: Neuroimaging Quality Measure: Measure #419: Overuse of Neuroimaging ICD10 Codes Entered: Yes View Detail: Yes Neurological Exam: Patient had a normal neurological exam. [G9535] Headache: Use of Neuroimaging: < CTA, CT, MRA or MRI was NOT ordered > [G9534] - Blood Pressure Screening View Details: Yes Does Patient Have Any of the Following: No Blood Pressure Classification: Hypertensive Reading Systolic Measurement: 133 Diastolic Measurement: 107 Screening for High Blood Pressure: < First Hypertensive BP, F/U Documented > [ G8950] First Hypertensive Follow-up Interventions: Referral to alternative/primary care provider.
[2018-12-31] MEDS ORDERED: LORAZEPAM 2 MG/ML VIAL IV ONE (15:25)
[2018-12-31] MEDS ORDERED: KETOROLAC 30 MG/ML VIAL IVP ONE (15:26)
[2018-12-31 15:42] LABS: BASO % 0.3 % (0-6); EOS % 1.9 % (0-6); GRAN % 67.9 % (47-80); HEMATOCRIT 37.4 % (35.0-47.0); HEMOGLOBIN 11.4 gm/dl (11.6-16.0); LYMPH % 24.5 % (16-45); MEAN CELL VOLUME 97.9 fl (81-97); MEAN CORPUSCULAR HEMOGLOBIN 29.8 pg (27-33); MEAN CORPUSCULAR HGB CONC 30.5 g/dl (32-36); MEAN PLATELET VOLUME 9.1 fl (7.4-10.4); MONO % 5.4 % (0-9); PLATELET COUNT 247 K/uL (130-400); RED BLOOD COUNT 3.82 M/uL (3.80-5.40); RED CELL DISTRIBUTION WIDTH 13.5 % (11.5-14.5); WHITE BLOOD COUNT W/O DIFF 6.8 K/uL (4.2-12.2)
[2018-12-31 15:51] LABS: BLOOD UREA NITROGEN 9 mg/dL (6-20); CREATININE 0.5 mg/dL (0.5-0.9); EST GLOMERULAR FILTRATION RATE > 60 mL/min
[2018-12-31 15:54] LABS: GLUCOSE,RANDOM 111 mg/dL (74-109)
[2018-12-31 15:57] LABS: CREATINE PHOSPHOKINASE 52 U/L (26-192)
[2018-12-31 15:58] LABS: CKMB 1.2 ng/mL (<3.77)
[2018-12-31 16:01] LABS: PARTIAL THROMBOPLASTIN TIME 30.1 SECONDS (24.5-39.1); PROTHROMBIN TIME (PATIENT) 10.3 SECONDS (9.5-12.1)
--- NOTE | 2019-01-04 10:56 | RADIOLOGY REPORT ---
EXAM: CHEST, TWO VIEWS HISTORY: CHEST PAIN. TECHNIQUE: Two views of the chest were obtained. Comparison: CTA chest 10/09/18. FINDINGS: The cardiac silhouette is within normal size limits. No focal pulmonary consolidation. No pleural effusion or pneumothorax. IMPRESSION: NO ACUTE LUNG FINDINGS. JOB NUMBER: [id number] [facility]
== END 2018-12-31 17:31 | disposition left against medical advice (07) ==
LOC: ER 14:49
DX: R07.89 Other chest pain (principal); R06.02 Shortness of breath; Z87.891 Personal history of nicotine dependence
CPT/HCPCS: 99284 ×2; 96374; 96375; 82550; 85025; 85730; 85610; 82553; 80048; 84484; 85379; 71046; 93005; 93010; J1885; J2060